=== PATIENT | male | born 1960 | race Caucasian/White ===

== ENCOUNTER → 2023-07-08 09:44 | Outpatient (ROUT) | payer BC, SELFPAY ==
[2023-07-08 10:45] LABS: Clostridium Difficile Tox PCR Negative for C. diff (Negative)
== END ==
PROVIDERS: Visit Provider Registered Nurse
DX: I69.354 Hemiplegia and hemiparesis following cerebral infarction affecting left non-dominant side (principal); G89.4 Chronic pain syndrome
CPT/HCPCS: 87493

== ENCOUNTER → 2023-11-30 15:54 | Outpatient (CLI) | payer BC, SELFPAY ==
--- NOTE | 2023-11-30 | DI.RAD.S_ITS ---
PROCEDURE: XR CHEST 2V INDICATIONS: WHEEZING TECHNIQUE: 2 views of the chest were acquired. COMPARISON: None. FINDINGS: Surgical changes and devices: None. Lungs and pleura: Lung volumes are small. Increased pulmonary vascularity. Bibasilar opacities are probably atelectasis. Question left basilar consolidation. No pleural effusions or pneumothorax. Mediastinum: Mediastinal contours are normal. Heart size is normal. Bones and chest wall: No suspicious bony abnormalities. Soft tissues appear unremarkable. IMPRESSION: 1. Question left basilar consolidation. 2. Small lung volumes with increased pulmonary vascularity and bibasilar atelectasis. Dictated by: Anita Jimenez M.D. on 11/30/2023 at 17:28 Approved by: Anita Jimenez M.D. on 11/30/2023 at 17:30
== END ==
LOC: RAD 16:01
PROVIDERS: Referring Provider Nurse Practitioner; Visit Provider Nurse Practitioner
DX: J18.9 Pneumonia, unspecified organism (principal); J91.8 Pleural effusion in other conditions classified elsewhere
CPT/HCPCS: 71046

== ENCOUNTER 2024-05-01 17:25 | Emergency (ER) | payer OTHER, SELFPAY ==
[2024-05-01] VITALS (19 sets, daily range): BP systolic 121–161; BP diastolic 70–91; PULSE 53–86; RESP 13–21; TEMP 36.6; O2SAT 90–98; BMI 25.0
--- NOTE | 2024-05-01 17:28 | ED_ITS ---
HPI - Abdominal Pain <Brittnee Fry MD - Last Filed: 05/02/24 13:14> General Chief Complaint: Abdominal Pain Stated Complaint: Abdominal Pain Time Seen by Provider: 05/01/24 17:30 History of Present Illness HPI narrative: 63-year-old male with history CVA with residual left-sided weakness, epilepsy presents by EMS from [facility] for abdominal pain for 1 day. Pain is all over his abdomen, poorly characterized, nothing seems to make it better or worse. Associated nausea. Patient states that he feels like he is very bloated. Denies prior history of abdominal surgeries. Related Data Home Medications Medication Instructions Recorded Confirmed baclofen 20 mg tablet 20 mg PO BID 05/01/24 05/01/24 diclofenac sodium 1 % topical gel 2 g topical BEDTIME 05/01/24 05/01/24 gabapentin 100 mg capsule 100 mg PO BEDTIME 05/01/24 05/01/24 gabapentin 100 mg capsule 400 mg PO QAM 05/01/24 05/01/24 gabapentin 300 mg capsule 600 mg PO BEDTIME 05/01/24 05/01/24 levetiracetam 500 mg tablet 500 mg PO BID 05/01/24 05/01/24 methocarbamol 500 mg tablet 500 mg PO Q6H PRN Pain (Scale 05/01/24 05/01/24 Score 4-6) olanzapine 10 mg tablet 10 mg PO ONCE PM 05/01/24 05/01/24 oxybutynin chloride 5 mg tablet 5 mg PO BID PRN Bladder Spasms 05/01/24 05/01/24 pantoprazole 40 mg tablet,delayed 40 mg PO DAILY 05/01/24 05/01/24 release trazodone 100 mg tablet 150 mg PO BEDTIME 05/01/24 05/01/24 Allergies Allergy/AdvReac Type Severity Reaction Status Date / Time tramadol AdvReac Intermediate Vomiting Verified 05/01/24 17:54 Patient History <Brittnee Fry MD - Last Filed: 05/02/24 13:14> Social History Smoking Status: Never smoker Exam <Brittnee Fry MD - Last Filed: 05/02/24 13:14> Initial Vital Signs Initial Vital Signs: Vital Signs Blood Pressure 151/87 H 05/01/24 17:27 Const: Awake, alert, no acute distress, debilitated, frail, appears chronically unwell, older than stated age Cardiac: regular rate, regular rhythm RESP: unlabored, clear bilaterally, no wheezing GI: Soft, distended, generalized tenderness to palpation without rebound or guarding Skin: Warm, Dry, intact, no rashes Neuro: AO x3, CN II-XII grossly intact, moves all extremities <Leonard Buckleystephane, DO - Last Filed: 05/02/24 17:55> Initial Vital Signs Initial Vital Signs: Vital Signs Blood Pressure 151/87 H 05/01/24 17:27 <Ke Grayson, DO - Last Filed: 05/02/24 17:47> Initial Vital Signs Initial Vital Signs: Vital Signs Blood Pressure 151/87 H 05/01/24 17:27 Course <Brittnee Fry MD - Last Filed: 05/02/24 13:14> Orders Ordered: Discontinued Medications Baclofen (Baclofen 10 Mg Tablet) 20 mg PO NOW ONE Stop: 05/01/24 22:55 Last Admin: 05/01/24 23:10 Dose: 20 mg Documented By: SB Baclofen (Baclofen 10 Mg Tablet) 20 mg PO NOW ONE Stop: 05/02/24 10:19 Last Admin: 05/02/24 11:02 Dose: 20 mg Documented By: SPF Benzocaine (Benzocaine/Menthol 1 Abiola Pkt) 1 each PO NOW ONE Stop: 05/01/24 22:13 Last Admin: 05/01/24 23:30 Dose: 1 each Documented By: SB Calcium Carbonate (Calcium Carbonate 500 Mg Tab) 500 mg PO NOW ONE Stop: 05/01/24 23:50 Last Admin: 05/01/24 23:57 Dose: 500 mg Documented By: SB Gabapentin (Gabapentin 300 Mg Capsule) 600 mg PO NOW ONE Stop: 05/01/24 22:54 Last Admin: 05/01/24 23:09 Dose: 600 mg Documented By: SB Gabapentin (Gabapentin 100 Mg Capsule) 100 mg PO NOW ONE Stop: 05/01/24 22:54 Last Admin: 05/01/24 23:10 Dose: 100 mg Documented By: SB Gabapentin (Gabapentin 100 Mg Capsule) 400 mg PO NOW ONE Stop: 05/02/24 10:18 Last Admin: 05/02/24 11:05 Dose: 400 mg Documented By: SPF Sodium Chloride (Normal Saline 0.9%) 1,000 mls @ 1,000 mls/hr IV BOLUS ONE Stop: 05/01/24 18:26 Last Infusion: 05/01/24 19:59 Dose: Infused Documented By: Admin: 05/01/24 17:49 Dose: 1,000 mls/hr Documented By: AUDRA Sodium Chloride (Normal Saline 0.9%) 1,000 mls @ 150 mls/hr IV CONT [facility] Last Infusion: 05/02/24 10:50 Dose: Infused Documented By: Infusion: 05/02/24 09:40 Dose: 150 mls/hr Documented By: Admin: 05/02/24 03:08 Dose: 150 mls/hr Documented By: Infusion: 05/02/24 03:06 Dose: Infused Documented By: Admin: 05/01/24 20:01 Dose: 150 mls/hr Documented By: MIKE Piperacillin Sod/Tazobactam (Sod 4.5 gm/ Sodium Chloride) 100 mls @ 25 mls/hr IV Q8H [facility] Last Infusion: 05/02/24 15:20 Dose: Infused Documented By: Admin: 05/02/24 11:06 Dose: 25 mls/hr Documented By: Infusion: 05/02/24 07:20 Dose: Infused Documented By: Admin: 05/02/24 03:08 Dose: 25 mls/hr Documented By: Infusion: 05/01/24 23:55 Dose: Infused Documented By: Admin: 05/01/24 20:03 Dose: 25 mls/hr Documented By: MIKE Ketorolac Tromethamine (Ketorolac 30 Mg/Ml Vial) 15 mg IV NOW ONE Stop: 05/02/24 03:21 Last Admin: 05/02/24 03:23 Dose: 15 mg Documented By: SIL Levetiracetam (Levetiracetam 250 Mg Tablet) 500 mg PO NOW ONE Stop: 05/01/24 22:55 Last Admin: 05/01/24 23:10 Dose: 500 mg Documented By: AUDRA Levetiracetam (Levetiracetam 250 Mg Tablet) 500 mg PO BID [facility] Last Admin: 05/02/24 11:03 Dose: 500 mg Documented By: OLEKSANDR Methocarbamol (Methocarbamol 500 Mg Tablet) 500 mg PO Q6H PRN PRN Reason: Pain, Severe (7-10) Last Admin: 05/02/24 11:02 Dose: 500 mg Documented By: SPF Morphine Sulfate (Morphine 4 Mg/Ml Inj) 4 mg IV NOW ONE Stop: 05/01/24 17:28 Last Admin: 05/01/24 17:57 Dose: 4 mg Documented By: AUDRA Olanzapine (Olanzapine 2.5 Mg Tablet) 10 mg PO NOW ONE Stop: 05/01/24 22:56 Last Admin: 05/01/24 23:09 Dose: 10 mg Documented By: AUDRA Ondansetron HCl (Ondansetron 4 Mg/2 Ml Inj) 4 mg IV NOW ONE Stop: 05/01/24 17:28 Last Admin: 05/01/24 17:50 Dose: 4 mg Documented By: AUDRA Pantoprazole Sodium (Pantoprazole Dr 20 Mg Tablet) 40 mg PO NOW ONE Stop: 05/02/24 10:21 Last Admin: 05/02/24 11:04 Dose: 40 mg Documented By: OLEKSANDR Trazodone HCl (Trazodone 50 Mg Tablet) 150 mg PO NOW ONE Stop: 05/01/24 22:56 Last Admin: 05/01/24 23:10 Dose: 150 mg Documented By: AUDRA Vital Signs Vital signs: Vital Signs - 8 hr 05/02/24 10:00 05/02/24 10:05 05/02/24 10:42 Pulse Rate 57 L 56 L Respiratory Rate Blood Pressure Pulse Oximetry 90 L 94 95 Oxygen Delivery Method Room Air Nasal Cannula Oxygen Flow Rate 2 05/02/24 10:43 05/02/24 10:43 05/02/24 11:00 Pulse Rate 54 L 57 L Respiratory Rate Blood Pressure 129/75 Pulse Oximetry 95 96 Oxygen Delivery Method Nasal Cannula Nasal Cannula Oxygen Flow Rate 2 2 05/02/24 11:00 05/02/24 11:30 05/02/24 12:00 Pulse Rate 50 L 51 L Respiratory Rate 21 Blood Pressure 120/74 Pulse Oximetry 95 96 Oxygen Delivery Method Nasal Cannula Nasal Cannula Oxygen Flow Rate 1 1 05/02/24 12:00 05/02/24 12:20 05/02/24 12:40 Pulse Rate 47 L 47 L Respiratory Rate 20 21 Blood Pressure 120/69 Pulse Oximetry 97 96 Oxygen Delivery Method Nasal Cannula Oxygen Flow Rate 1 05/02/24 13:00 05/02/24 13:05 05/02/24 13:05 Pulse Rate 44 L 46 L Respiratory Rate 21 11 L Blood Pressure 114/69 Pulse Oximetry 96 94 Oxygen Delivery Method Nasal Cannula Oxygen Flow Rate 1 05/02/24 13:20 05/02/24 13:40 05/02/24 14:00 Pulse Rate 42 L 44 L 48 L Respiratory Rate 17 20 22 Blood Pressure Pulse Oximetry 98 93 95 Oxygen Delivery Method Nasal Cannula Oxygen Flow Rate 1 05/02/24 14:01 05/02/24 14:01 05/02/24 14:14 Pulse Rate 49 L 50 L Respiratory Rate 21 15 Blood Pressure 91/62 Pulse Oximetry 95 94 Oxygen Delivery Method Nasal Cannula Oxygen Flow Rate 1 05/02/24 14:14 05/02/24 14:20 05/02/24 14:20 Pulse Rate 47 L Respiratory Rate 20 Blood Pressure 102/67 105/70 Pulse Oximetry 95 Oxygen Delivery Method Oxygen Flow Rate 05/02/24 14:40 05/02/24 14:41 05/02/24 14:41 Pulse Rate 48 L 50 L Respiratory Rate 16 20 Blood Pressure 124/73 Pulse Oximetry 97 97 Oxygen Delivery Method Nasal Cannula Oxygen Flow Rate 1 05/02/24 15:00 Pulse Rate 52 L Respiratory Rate 20 Blood Pressure Pulse Oximetry 96 Oxygen Delivery Method Oxygen Flow Rate <Leonard Macedo, DO - Last Filed: 05/02/24 17:55> Orders Ordered: Discontinued Medications Baclofen (Baclofen 10 Mg Tablet) 20 mg PO NOW ONE Stop: 05/01/24 22:55 Last Admin: 05/01/24 23:10 Dose: 20 mg Documented By: SB Baclofen (Baclofen 10 Mg Tablet) 20 mg PO NOW ONE Stop: 05/02/24 10:19 Last Admin: 05/02/24 11:02 Dose: 20 mg Documented By: SPF Benzocaine (Benzocaine/Menthol 1 Abiola Pkt) 1 each PO NOW ONE Stop: 05/01/24 22:13 Last Admin: 05/01/24 23:30 Dose: 1 each Documented By: SB Calcium Carbonate (Calcium Carbonate 500 Mg Tab) 500 mg PO NOW ONE Stop: 05/01/24 23:50 Last Admin: 05/01/24 23:57 Dose: 500 mg Documented By: SB Gabapentin (Gabapentin 300 Mg Capsule) 600 mg PO NOW ONE Stop: 05/01/24 22:54 Last Admin: 05/01/24 23:09 Dose: 600 mg Documented By: AUDRA Gabapentin (Gabapentin 100 Mg Capsule) 100 mg PO NOW ONE Stop: 05/01/24 22:54 Last Admin: 05/01/24 23:10 Dose: 100 mg Documented By: SB Gabapentin (Gabapentin 100 Mg Capsule) 400 mg PO NOW ONE Stop: 05/02/24 10:18 Last Admin: 05/02/24 11:05 Dose: 400 mg Documented By: OLEKSANDR Sodium Chloride (Normal Saline 0.9%) 1,000 mls @ 1,000 mls/hr IV BOLUS ONE Stop: 05/01/24 18:26 Last Infusion: 05/01/24 19:59 Dose: Infused Documented By: Admin: 05/01/24 17:49 Dose: 1,000 mls/hr Documented By: AUDRA Sodium Chloride (Normal Saline 0.9%) 1,000 mls @ 150 mls/hr IV CONT [facility] Last Infusion: 05/02/24 10:50 Dose: Infused Documented By: Infusion: 05/02/24 09:40 Dose: 150 mls/hr Documented By: Admin: 05/02/24 03:08 Dose: 150 mls/hr Documented By: Infusion: 05/02/24 03:06 Dose: Infused Documented By: HNEfrain Admin: 05/01/24 20:01 Dose: 150 mls/hr Documented By: MIKE Piperacillin Sod/Tazobactam (Sod 4.5 gm/ Sodium Chloride) 100 mls @ 25 mls/hr IV Q8H [facility] Last Infusion: 05/02/24 15:20 Dose: Infused Documented By: Admin: 05/02/24 11:06 Dose: 25 mls/hr Documented By: Infusion: 05/02/24 07:20 Dose: Infused Documented By: Admin: 05/02/24 03:08 Dose: 25 mls/hr Documented By: Infusion: 05/01/24 23:55 Dose: Infused Documented By: Admin: 05/01/24 20:03 Dose: 25 mls/hr Documented By: MIKE Ketorolac Tromethamine (Ketorolac 30 Mg/Ml Vial) 15 mg IV NOW ONE Stop: 05/02/24 03:21 Last Admin: 05/02/24 03:23 Dose: 15 mg Documented By: SIL Levetiracetam (Levetiracetam 250 Mg Tablet) 500 mg PO NOW ONE Stop: 05/01/24 22:55 Last Admin: 05/01/24 23:10 Dose: 500 mg Documented By: AUDRA Levetiracetam (Levetiracetam 250 Mg Tablet) 500 mg PO BID [facility] Last Admin: 05/02/24 11:03 Dose: 500 mg Documented By: OLEKSANDR Methocarbamol (Methocarbamol 500 Mg Tablet) 500 mg PO Q6H PRN PRN Reason: Pain, Severe (7-10) Last Admin: 05/02/24 11:02 Dose: 500 mg Documented By: OLEKSANDR Morphine Sulfate (Morphine 4 Mg/Ml Inj) 4 mg IV NOW ONE Stop: 05/01/24 17:28 Last Admin: 05/01/24 17:57 Dose: 4 mg Documented By: AUDRA Olanzapine (Olanzapine 2.5 Mg Tablet) 10 mg PO NOW ONE Stop: 05/01/24 22:56 Last Admin: 05/01/24 23:09 Dose: 10 mg Documented By: AUDRA Ondansetron HCl (Ondansetron 4 Mg/2 Ml Inj) 4 mg IV NOW ONE Stop: 05/01/24 17:28 Last Admin: 05/01/24 17:50 Dose: 4 mg Documented By: AUDRA Pantoprazole Sodium (Pantoprazole Dr 20 Mg Tablet) 40 mg PO NOW ONE Stop: 05/02/24 10:21 Last Admin: 05/02/24 11:04 Dose: 40 mg Documented By: OLEKSANDR Trazodone HCl (Trazodone 50 Mg Tablet) 150 mg PO NOW ONE Stop: 05/01/24 22:56 Last Admin: 05/01/24 23:10 Dose: 150 mg Documented By: AUDRA Vital Signs Vital signs: Vital Signs - 8 hr 05/02/24 10:00 05/02/24 10:05 05/02/24 10:42 Pulse Rate 57 L 56 L Respiratory Rate Blood Pressure Pulse Oximetry 90 L 94 95 Oxygen Delivery Method Room Air Nasal Cannula Oxygen Flow Rate 2 05/02/24 10:43 05/02/24 10:43 05/02/24 11:00 Pulse Rate 54 L 57 L Respiratory Rate Blood Pressure 129/75 Pulse Oximetry 95 96 Oxygen Delivery Method Nasal Cannula Nasal Cannula Oxygen Flow Rate 2 2 05/02/24 11:00 05/02/24 11:30 05/02/24 12:00 Pulse Rate 50 L 51 L Respiratory Rate 21 Blood Pressure 120/74 Pulse Oximetry 95 96 Oxygen Delivery Method Nasal Cannula Nasal Cannula Oxygen Flow Rate 1 1 05/02/24 12:00 05/02/24 12:20 05/02/24 12:40 Pulse Rate 47 L 47 L Respiratory Rate 20 21 Blood Pressure 120/69 Pulse Oximetry 97 96 Oxygen Delivery Method Nasal Cannula Oxygen Flow Rate 1 05/02/24 13:00 05/02/24 13:05 05/02/24 13:05 Pulse Rate 44 L 46 L Respiratory Rate 21 11 L Blood Pressure 114/69 Pulse Oximetry 96 94 Oxygen Delivery Method Nasal Cannula Oxygen Flow Rate 1 05/02/24 13:20 05/02/24 13:40 05/02/24 14:00 Pulse Rate 42 L 44 L 48 L Respiratory Rate 17 20 22 Blood Pressure Pulse Oximetry 98 93 95 Oxygen Delivery Method Nasal Cannula Oxygen Flow Rate 1 05/02/24 14:01 05/02/24 14:01 05/02/24 14:14 Pulse Rate 49 L 50 L Respiratory Rate 21 15 Blood Pressure 91/62 Pulse Oximetry 95 94 Oxygen Delivery Method Nasal Cannula Oxygen Flow Rate 1 05/02/24 14:14 05/02/24 14:20 05/02/24 14:20 Pulse Rate 47 L Respiratory Rate 20 Blood Pressure 102/67 105/70 Pulse Oximetry 95 Oxygen Delivery Method Oxygen Flow Rate 05/02/24 14:40 05/02/24 14:41 05/02/24 14:41 Pulse Rate 48 L 50 L Respiratory Rate 16 20 Blood Pressure 124/73 Pulse Oximetry 97 97 Oxygen Delivery Method Nasal Cannula Oxygen Flow Rate 1 05/02/24 15:00 Pulse Rate 52 L Respiratory Rate 20 Blood Pressure Pulse Oximetry 96 Oxygen Delivery Method Oxygen Flow Rate <Ke Grayson, DO - Last Filed: 05/02/24 17:47> Orders Ordered: Discontinued Medications Baclofen (Baclofen 10 Mg Tablet) 20 mg PO NOW ONE Stop: 05/01/24 22:55 Last Admin: 05/01/24 23:10 Dose: 20 mg Documented By: SB Baclofen (Baclofen 10 Mg Tablet) 20 mg PO NOW ONE Stop: 05/02/24 10:19 Last Admin: 05/02/24 11:02 Dose: 20 mg Documented By: SPF Benzocaine (Benzocaine/Menthol 1 Abiola Pkt) 1 each PO NOW ONE Stop: 05/01/24 22:13 Last Admin: 05/01/24 23:30 Dose: 1 each Documented By: AUDRA Calcium Carbonate (Calcium Carbonate 500 Mg Tab) 500 mg PO NOW ONE Stop: 05/01/24 23:50 Last Admin: 05/01/24 23:57 Dose: 500 mg Documented By: AUDRA Gabapentin (Gabapentin 300 Mg Capsule) 600 mg PO NOW ONE Stop: 05/01/24 22:54 Last Admin: 05/01/24 23:09 Dose: 600 mg Documented By: AUDRA Gabapentin (Gabapentin 100 Mg Capsule) 100 mg PO NOW ONE Stop: 05/01/24 22:54 Last Admin: 05/01/24 23:10 Dose: 100 mg Documented By: AUDRA Gabapentin (Gabapentin 100 Mg Capsule) 400 mg PO NOW ONE Stop: 05/02/24 10:18 Last Admin: 05/02/24 11:05 Dose: 400 mg Documented By: OLEKSANDR Sodium Chloride (Normal Saline 0.9%) 1,000 mls @ 1,000 mls/hr IV BOLUS ONE Stop: 05/01/24 18:26 Last Infusion: 05/01/24 19:59 Dose: Infused Documented By: Admin: 05/01/24 17:49 Dose: 1,000 mls/hr Documented By: AUDRA Sodium Chloride (Normal Saline 0.9%) 1,000 mls @ 150 mls/hr IV CONT [facility] Last Infusion: 05/02/24 10:50 Dose: Infused Documented By: Infusion: 05/02/24 09:40 Dose: 150 mls/hr Documented By: Admin: 05/02/24 03:08 Dose: 150 mls/hr Documented By: Infusion: 05/02/24 03:06 Dose: Infused Documented By: Admin: 05/01/24 20:01 Dose: 150 mls/hr Documented By: MPO Piperacillin Sod/Tazobactam (Sod 4.5 gm/ Sodium Chloride) 100 mls @ 25 mls/hr IV Q8H [facility] Last Infusion: 05/02/24 15:20 Dose: Infused Documented By: Admin: 05/02/24 11:06 Dose: 25 mls/hr Documented By: Infusion: 05/02/24 07:20 Dose: Infused Documented By: Admin: 05/02/24 03:08 Dose: 25 mls/hr Documented By: Infusion: 05/01/24 23:55 Dose: Infused Documented By: Admin: 05/01/24 20:03 Dose: 25 mls/hr Documented By: MIKE Ketorolac Tromethamine (Ketorolac 30 Mg/Ml Vial) 15 mg IV NOW ONE Stop: 05/02/24 03:21 Last Admin: 05/02/24 03:23 Dose: 15 mg Documented By: SIL Levetiracetam (Levetiracetam 250 Mg Tablet) 500 mg PO NOW ONE Stop: 05/01/24 22:55 Last Admin: 05/01/24 23:10 Dose: 500 mg Documented By: AUDRA Levetiracetam (Levetiracetam 250 Mg Tablet) 500 mg PO BID [facility] Last Admin: 05/02/24 11:03 Dose: 500 mg Documented By: OLEKSANDR Methocarbamol (Methocarbamol 500 Mg Tablet) 500 mg PO Q6H PRN PRN Reason: Pain, Severe (7-10) Last Admin: 05/02/24 11:02 Dose: 500 mg Documented By: OLEKSANDR Morphine Sulfate (Morphine 4 Mg/Ml Inj) 4 mg IV NOW ONE Stop: 05/01/24 17:28 Last Admin: 05/01/24 17:57 Dose: 4 mg Documented By: AUDRA Olanzapine (Olanzapine 2.5 Mg Tablet) 10 mg PO NOW ONE Stop: 05/01/24 22:56 Last Admin: 05/01/24 23:09 Dose: 10 mg Documented By: AUDRA Ondansetron HCl (Ondansetron 4 Mg/2 Ml Inj) 4 mg IV NOW ONE Stop: 05/01/24 17:28 Last Admin: 05/01/24 17:50 Dose: 4 mg Documented By: AUDRA Pantoprazole Sodium (Pantoprazole Dr 20 Mg Tablet) 40 mg PO NOW ONE Stop: 05/02/24 10:21 Last Admin: 05/02/24 11:04 Dose: 40 mg Documented By: SPF Trazodone HCl (Trazodone 50 Mg Tablet) 150 mg PO NOW ONE Stop: 05/01/24 22:56 Last Admin: 05/01/24 23:10 Dose: 150 mg Documented By: AUDRA Vital Signs Vital signs: Vital Signs - 8 hr 05/02/24 10:00 05/02/24 10:05 05/02/24 10:42 Pulse Rate 57 L 56 L Respiratory Rate Blood Pressure Pulse Oximetry 90 L 94 95 Oxygen Delivery Method Room Air Nasal Cannula Oxygen Flow Rate 2 05/02/24 10:43 05/02/24 10:43 05/02/24 11:00 Pulse Rate 54 L 57 L Respiratory Rate Blood Pressure 129/75 Pulse Oximetry 95 96 Oxygen Delivery Method Nasal Cannula Nasal Cannula Oxygen Flow Rate 2 2 05/02/24 11:00 05/02/24 11:30 05/02/24 12:00 Pulse Rate 50 L 51 L Respiratory Rate 21 Blood Pressure 120/74 Pulse Oximetry 95 96 Oxygen Delivery Method Nasal Cannula Nasal Cannula Oxygen Flow Rate 1 1 05/02/24 12:00 05/02/24 12:20 05/02/24 12:40 Pulse Rate 47 L 47 L Respiratory Rate 20 21 Blood Pressure 120/69 Pulse Oximetry 97 96 Oxygen Delivery Method Nasal Cannula Oxygen Flow Rate 1 05/02/24 13:00 05/02/24 13:05 05/02/24 13:05 Pulse Rate 44 L 46 L Respiratory Rate 21 11 L Blood Pressure 114/69 Pulse Oximetry 96 94 Oxygen Delivery Method Nasal Cannula Oxygen Flow Rate 1 05/02/24 13:20 05/02/24 13:40 05/02/24 14:00 Pulse Rate 42 L 44 L 48 L Respiratory Rate 17 20 22 Blood Pressure Pulse Oximetry 98 93 95 Oxygen Delivery Method Nasal Cannula Oxygen Flow Rate 1 05/02/24 14:01 05/02/24 14:01 05/02/24 14:14 Pulse Rate 49 L 50 L Respiratory Rate 21 15 Blood Pressure 91/62 Pulse Oximetry 95 94 Oxygen Delivery Method Nasal Cannula Oxygen Flow Rate 1 05/02/24 14:14 05/02/24 14:20 05/02/24 14:20 Pulse Rate 47 L Respiratory Rate 20 Blood Pressure 102/67 105/70 Pulse Oximetry 95 Oxygen Delivery Method Oxygen Flow Rate 05/02/24 14:40 05/02/24 14:41 05/02/24 14:41 Pulse Rate 48 L 50 L Respiratory Rate 16 20 Blood Pressure 124/73 Pulse Oximetry 97 97 Oxygen Delivery Method Nasal Cannula Oxygen Flow Rate 1 05/02/24 15:00 Pulse Rate 52 L Respiratory Rate 20 Blood Pressure Pulse Oximetry 96 Oxygen Delivery Method Oxygen Flow Rate MDM - Abdominal Pain <Brittnee Fry MD - Last Filed: 05/02/24 13:14> Lab Data 05/01/24 18:05 05/01/24 18:05 Labs: Lab Results 05/01/24 05/01/24 Range/Units 18:05 19:00 WBC 14.4 H (4.5-11.0) X10^3/uL RBC 5.33 (4.5-5.9) X10^6/uL Hgb 15.6 (13.5-17.5) g/dL Hct 46.4 (41-53) % MCV 87.0 (80-100) fL MCH 29.2 (26-34) PG MCHC 33.6 (30-36) % RDW 14.7 (11.6-14.8) % Plt Count 287 (150-400) X10^3/uL Neut % (Auto) 91.9 H (50-75) % Lymph % (Auto) 4.7 L (25-40) % Kay % (Auto) 3.1 (3-14) % Eos % (Auto) 0.1 L (2-4) % Baso % (Auto) 0.2 (0-2) % Neut # (Auto) 97408 H (0034-1701) /uL Lymph # (Auto) 700 L (6251-9013) /uL Kay # (Auto) 400 (0-900) /uL Eos # (Auto) 0 (0-450) /uL Baso # (Auto) 0 (0-100) /uL PT 12.3 (9.4-12.5) SECONDS INR 1.1 (0.9-1.3) Sodium 140 (137-145) mmol/L Potassium 3.5 (3.4-5.1) mmol/L Chloride 105 (98-107) mmol/L Carbon Dioxide 27 (22-32) mmol/L BUN 22 H (9-20) mg/dL Creatinine 0.47 L (0.66-1.25) mg/dL Estimated GFR > 60 (>60) mL/min BUN/Creatinine Ratio 46.8 H (6-22) Glucose 180 H (80-110) mg/dL Lactate 1.8 (0.7-2.1) mmol/L Calcium 9.0 (8.4-10.2) mg/dL Total Bilirubin 1.6 H (0.2-1.3) mg/dL AST 285 H (17-59) IU/L ALT 310 H (<50) IU/L Alkaline Phosphatase 134 H (38-126) U/L Total Protein 7.6 (6.3-8.2) g/dL Albumin 4.0 (3.5-5.0) g/dL Globulin 3.6 (1.7-4.1) g/dL Albumin/Globulin Ratio 1.1 (1.0-2.8) Lipase 83004 H (23-300) U/L Urine Color Yellow Urine Appearance Sl cloudy Urine pH 6.5 (4.5-8.0) Ur Specific [place] 1.010 (1.000-1.035) Urine Protein Negative (Negative) Urine Glucose (UA) Negative (Negative) g/dL Urine Ketones Negative (NEGATIVE) Urine Occult Blood Trace-intact (Negative) Urine Nitrate Negative (Negative) Urine Bilirubin Negative (NEGATIVE) Urine Urobilinogen 1.0 (0.2) E.U./dL Ur Leukocyte Esterase 3+ H (NEGATIVE) Urine RBC 0-1/hpf (0-5/HPF) Urine WBC 30-100/hpf H (0-5/HPF) Ur Squamous Epith Cells 0-1 /hpf (0-5/HPF) Urine Bacteria Many (>30) H (None) Urine Mucus 1+ H (Negative) Ur Culture Indicated? Specimen cultured Vol Urine Centrifuged 10ml (spun) MDM Narrative Medical decision making narrative: 1 day of abdominal pain and nausea. Patient also complaining of a severe bloating sensation. Abdomen does appear to be somewhat distended but is soft, no fluid wave, no peritoneal signs. Laboratory work, CT imaging ordered. Nausea and pain medications also ordered. Care of patient is signed out to nighttime doctor at 1800 <Leonard Macedo DO - Last Filed: 05/02/24 17:55> Lab Data Attestation: I reviewed the patient's lab results. Labs: Lab Results 05/01/24 05/01/24 Range/Units 18:05 19:00 WBC 14.4 H (4.5-11.0) X10^3/uL RBC 5.33 (4.5-5.9) X10^6/uL Hgb 15.6 (13.5-17.5) g/dL Hct 46.4 (41-53) % MCV 87.0 (80-100) fL MCH 29.2 (26-34) PG MCHC 33.6 (30-36) % RDW 14.7 (11.6-14.8) % Plt Count 287 (150-400) X10^3/uL Neut % (Auto) 91.9 H (50-75) % Lymph % (Auto) 4.7 L (25-40) % Kay % (Auto) 3.1 (3-14) % Eos % (Auto) 0.1 L (2-4) % Baso % (Auto) 0.2 (0-2) % Neut # (Auto) 15065 H (4906-3062) /uL Lymph # (Auto) 700 L (5485-3558) /uL Kay # (Auto) 400 (0-900) /uL Eos # (Auto) 0 (0-450) /uL Baso # (Auto) 0 (0-100) /uL PT 12.3 (9.4-12.5) SECONDS INR 1.1 (0.9-1.3) Sodium 140 (137-145) mmol/L Potassium 3.5 (3.4-5.1) mmol/L Chloride 105 (98-107) mmol/L Carbon Dioxide 27 (22-32) mmol/L BUN 22 H (9-20) mg/dL Creatinine 0.47 L (0.66-1.25) mg/dL Estimated GFR > 60 (>60) mL/min BUN/Creatinine Ratio 46.8 H (6-22) Glucose 180 H (80-110) mg/dL Lactate 1.8 (0.7-2.1) mmol/L Calcium 9.0 (8.4-10.2) mg/dL Total Bilirubin 1.6 H (0.2-1.3) mg/dL AST 285 H (17-59) IU/L ALT 310 H (<50) IU/L Alkaline Phosphatase 134 H (38-126) U/L Total Protein 7.6 (6.3-8.2) g/dL Albumin 4.0 (3.5-5.0) g/dL Globulin 3.6 (1.7-4.1) g/dL Albumin/Globulin Ratio 1.1 (1.0-2.8) Lipase 25309 H (23-300) U/L Urine Color Yellow Urine Appearance Sl cloudy Urine pH 6.5 (4.5-8.0) Ur Specific [place] 1.010 (1.000-1.035) Urine Protein Negative (Negative) Urine Glucose (UA) Negative (Negative) g/dL Urine Ketones Negative (NEGATIVE) Urine Occult Blood Trace-intact (Negative) Urine Nitrate Negative (Negative) Urine Bilirubin Negative (NEGATIVE) Urine Urobilinogen 1.0 (0.2) E.U./dL Ur Leukocyte Esterase 3+ H (NEGATIVE) Urine RBC 0-1/hpf (0-5/HPF) Urine WBC 30-100/hpf H (0-5/HPF) Ur Squamous Epith Cells 0-1 /hpf (0-5/HPF) Urine Bacteria Many (>30) H (None) Urine Mucus 1+ H (Negative) Ur Culture Indicated? Specimen cultured Vol Urine Centrifuged 10ml (spun) Imaging Data US - abdomen: Radiologist's Impression: PROCEDURE: US ABDOMEN LIMITED INDICATIONS: FOLLOW UP CT - GALLBLADDER TECHNIQUE: Real-time focused scanning was performed of the abdomen, with image documentation. COMPARISON: [facility], CT, CT ABDOMEN PELVIS W CON, 05/01/2024, 18:32. FINDINGS: Liver measures 17 cm. Echogenic appearance. Limited evaluation due to increased bowel gas. Small bowel sludge and gallstones are present. Distended gallbladder. No focal tenderness. Distended CBD at 8 mm. Nonspecific heterogeneous appearance of the pancreas. IMPRESSION: Limited sonographic windows. Cholelithiasis and distended gallbladder without focal sonographic [place] sign at this time. Distended biliary tree at 8 mm. Echogenic liver, nonspecific, usually due to steatosis or hepatocellular disease. CT scan - abdomen/pelvis: Radiologist's Impression: PROCEDURE: CT ABDOMEN PELVIS W CON INDICATIONS: N/V/GEN ABD DISTENSION TECHNIQUE: After the administration of intravenous contrast, axial sections acquired from the lung bases to the pubic symphysis. Coronal and sagittal reformats were performed. For radiation dose reduction, the following was used: automated exposure control, adjustment of mA and/or kV according to patient size. COMPARISON: None. FINDINGS: Image quality: Diagnostic Lower chest: Bibasilar atelectasis and opacities. No significant effusion. Cardiomegaly and coronary calcifications. Mild fluid is seen in the distal esophagus Liver: Unremarkable Gallbladder and biliary system: Distended, CBD is prominent at 9 millimeters. Pancreas: No high-grade inflammatory changes. No ductal dilation. There is possible altered enhancement at the pancreatic head. Spleen: Nonenlarged Adrenals: No discrete nodules Kidneys: No solid mass or hydronephrosis subcentimeter lesions are too small to characterize, usually cysts. Vessels and lymph nodes: Possible asymmetric filling defect in the right pelvic veins and right common femoral vein. No abdominal aortic aneurysm. The main portal vein is patent. No pathologic lymph nodes by size criteria Bowel and peritoneum: The stomach is moderately distended. No acute small bowel obstruction. No pathologic ascites. Mild wall thickening at the rectum and distal colon. There are colonic diverticula. The appendix is nondilated. Body wall: Tiny fat containing umbilical hernia Pelvis: Bladder appears unremarkable. Prostate is not well evaluated on this study. There is fluid and muscular atrophy around the left femur. No rim enhancing fluid collection. Bones: Degenerative changes. IMPRESSION: Altered enhancement of the pancreatic head, possibly with minimal surrounding fat stranding. Correlate with lipase. This may be also due to heterogeneous fatty deposition of the pancreas. Distended gallbladder and mildly distended CBD, no radiopaque gallstones. Consider MRCP/pancreas protocol MRI to further assess the head of the pancreas and biliary system if clinically indicated. Distended stomach, no small bowel obstruction. Possible proctitis and distal colitis. Nonspecific fluid and muscular atrophy surrounding the proximal left femur, partially visualized. Cardiomegaly and coronary calcifications. Lower lung atelectasis and possible infectious/inflammatory opacities. This is only partially seen. Possible filling defect in right pelvic vein and right common femoral vein, correlate with ultrasound. Other findings above. ECG Data Interpretation: Sinus rhythm Ventricular rate of 83 Normal axis Normal QRS LVH No ST T wave changes MDM Narrative Medical decision making narrative: 1 day of abdominal pain and nausea. Patient also complaining of a severe bloating sensation. Abdomen does appear to be somewhat distended but is soft, no fluid wave, no peritoneal signs. Laboratory work, CT imaging ordered. Nausea and pain medications also ordered. Care of patient is signed out to nighttime doctor at 1800 Dr macedo: Received turned over. Review patient's history and physical exam. Patient is having abdominal bloating. No specific abdominal tenderness just overall discomfort because of the bloating. He does have leukocytosis bilirubin and LFTs are elevated along with lipase. CT scan shows findings consistent with pancreatitis and potential gallbladder pathology. Right upper quadrant ultrasound also shows potential gallbladder pathology. Patient was started on Zosyn. There is some concern given his lab testing that he does have a common bile duct stone. Pain is relatively well controlled. He was given his night medications. Fluids started. Has not been hypotensive. Does require MRCP for further evaluation. This was ordered for morning. He has been NPO since midnight. Care turned over to day ED provider to follow-up on MRCP and disposition. <Ke Grayson, DO - Last Filed: 05/02/24 17:47> Differential Diagnosis Differential diagnosis: Likely abdominal pain, acute appendicitis, diverticulitis, small bowel obstruction and other (Cholelithiasis, pancreatitis, choledocholithiasis, cholecystitis) Medical Records Attestation: I reviewed the patient's medical records. Lab Data Labs: Lab Results 05/01/24 05/01/24 Range/Units 18:05 19:00 WBC 14.4 H (4.5-11.0) X10^3/uL RBC 5.33 (4.5-5.9) X10^6/uL Hgb 15.6 (13.5-17.5) g/dL Hct 46.4 (41-53) % MCV 87.0 (80-100) fL MCH 29.2 (26-34) PG MCHC 33.6 (30-36) % RDW 14.7 (11.6-14.8) % Plt Count 287 (150-400) X10^3/uL Neut % (Auto) 91.9 H (50-75) % Lymph % (Auto) 4.7 L (25-40) % Kay % (Auto) 3.1 (3-14) % Eos % (Auto) 0.1 L (2-4) % Baso % (Auto) 0.2 (0-2) % Neut # (Auto) 32535 H (2059-6385) /uL Lymph # (Auto) 700 L (4663-5042) /uL Kay # (Auto) 400 (0-900) /uL Eos # (Auto) 0 (0-450) /uL Baso # (Auto) 0 (0-100) /uL PT 12.3 (9.4-12.5) SECONDS INR 1.1 (0.9-1.3) Sodium 140 (137-145) mmol/L Potassium 3.5 (3.4-5.1) mmol/L Chloride 105 (98-107) mmol/L Carbon Dioxide 27 (22-32) mmol/L BUN 22 H (9-20) mg/dL Creatinine 0.47 L (0.66-1.25) mg/dL Estimated GFR > 60 (>60) mL/min BUN/Creatinine Ratio 46.8 H (6-22) Glucose 180 H (80-110) mg/dL Lactate 1.8 (0.7-2.1) mmol/L Calcium 9.0 (8.4-10.2) mg/dL Total Bilirubin 1.6 H (0.2-1.3) mg/dL AST 285 H (17-59) IU/L ALT 310 H (<50) IU/L Alkaline Phosphatase 134 H (38-126) U/L Total Protein 7.6 (6.3-8.2) g/dL Albumin 4.0 (3.5-5.0) g/dL Globulin 3.6 (1.7-4.1) g/dL Albumin/Globulin Ratio 1.1 (1.0-2.8) Lipase 86619 H (23-300) U/L Urine Color Yellow Urine Appearance Sl cloudy Urine pH 6.5 (4.5-8.0) Ur Specific [place] 1.010 (1.000-1.035) Urine Protein Negative (Negative) Urine Glucose (UA) Negative (Negative) g/dL Urine Ketones Negative (NEGATIVE) Urine Occult Blood Trace-intact (Negative) Urine Nitrate Negative (Negative) Urine Bilirubin Negative (NEGATIVE) Urine Urobilinogen 1.0 (0.2) E.U./dL Ur Leukocyte Esterase 3+ H (NEGATIVE) Urine RBC 0-1/hpf (0-5/HPF) Urine WBC 30-100/hpf H (0-5/HPF) Ur Squamous Epith Cells 0-1 /hpf (0-5/HPF) Urine Bacteria Many (>30) H (None) Urine Mucus 1+ H (Negative) Ur Culture Indicated? Specimen cultured Vol Urine Centrifuged 10ml (spun) MDM Narrative Medical decision making narrative: 1 day of abdominal pain and nausea. Patient also complaining of a severe bloating sensation. Abdomen does appear to be somewhat distended but is soft, no fluid wave, no peritoneal signs. Laboratory work, CT imaging ordered. Nausea and pain medications also ordered. Care of patient is signed out to nighttime doctor at [address] Dr macedo: Received turned over. Review patient's history and physical exam. Patient is having abdominal bloating. No specific abdominal tenderness just overall discomfort because of the bloating. He does have leukocytosis bilirubin and LFTs are elevated along with lipase. CT scan shows findings consistent with pancreatitis and potential gallbladder pathology. Right upper quadrant ultrasound also shows potential gallbladder pathology. Patient was started on Zosyn. There is some concern given his lab testing that he does have a common bile duct stone. Pain is relatively well controlled. He was given his night medications. Fluids started. Has not been hypotensive. Does require MRCP for further evaluation. This was ordered for morning. He has been NPO since midnight. Care turned over to day ED provider to follow-up on MRCP and disposition. 05.02.24 @ 0710: Case was signed out to me by Dr. Macedo: Patient presented nonspecific diffuse abdominal discomfort, lab work and imaging currently consistent with pancreatitis as well as distended common bile duct. Patient is to receive MRCP today, if common bile duct stone present will require transfer to facility with GI, if normal will reach out to General surgery for disposition. Patient has been NPO since midnight. 1103: Had a discussion with the radiologist, patient had truncated MRCP given pain and motion artifact, however he states that there are 2 CBD duct stones, however also is stating that there is a low ectopic insertion of the cystic duct and common bile duct which could potentially complicate any cholecystectomies. We will reach out to General surgery for further recommendation 1120: Discussed case with general surgeon Dr. Fuller, informed her of the MRI results, states that given common bile duct stones still would recommend transfer to outside hospital for ERCP 1136: Discussed case GI doctor Shaneka, he states that patient will need ERCP and agrees to have it transferred over to [facility]. Recommending discussion for admission with hospitalist. Will reach out to hospitalist for admission and transfer 1355: Case discussed with dr. Roldan (hospitalist at [facility]), accepts the transfer admission. Discharge Plan Departure Patient Disposition: [facility] Clinical Impression: Choledocholithiasis with acute cholecystitis with obstruction, Pancreatitis, Abdominal pain Prescriptions: No Action methocarbamol 500 mg tablet 500 mg PO Q6H PRN (Reason: Pain (Scale Score 4-6)) levetiracetam 500 mg tablet 500 mg PO BID olanzapine 10 mg tablet 10 mg PO ONCE PM baclofen 20 mg tablet 20 mg PO BID trazodone 100 mg tablet 150 mg PO BEDTIME pantoprazole 40 mg tablet,delayed release (DR/EC) 40 mg PO DAILY gabapentin 300 mg capsule 600 mg PO BEDTIME gabapentin 100 mg capsule 100 mg PO BEDTIME gabapentin 100 mg capsule 400 mg PO QAM oxybutynin chloride 5 mg Tablet 5 mg PO BID PRN (Reason: Bladder Spasms) diclofenac sodium 1 % Gel 2 g TOPICAL BEDTIME Rx Instructions: LLE Referrals: Miscellaneous,Doctor, [Primary Care Provider] -
--- NOTE | 2024-05-01 17:47 | EKG_ITS ---
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
[2024-05-01] MEDS: SODIUM CHLORIDE 0.9% 1,000 ML 1000 ML IV (17:49)
[2024-05-01] MEDS: ONDANSETRON 4 MG/2 ML INJ IV (17:50)
[2024-05-01] MEDS: MORPHINE 4 MG/ML INJ IV (17:57)
[2024-05-01 18:16] LABS: Add Manual Diff / Slide Review NO; Basophils Absolute Auto 0 /uL (0-100); Basophils Percent Auto 0.2 % (0-2); Eosinophils Absolute Auto 0 /uL (0-450); Eosinophils Percent Auto 0.1 % (2-4); Hematocrit 46.4 % (41-53); Hemoglobin 15.6 g/dL (13.5-17.5); Lymphocytes Absolute Auto 700 /uL (1100-4500); Lymphocytes Percent Auto 4.7 % (25-40); Mean Corpuscular HGB Conc 33.6 % (30-36); Mean Corpuscular Hemoglobin 29.2 PG (26-34); Monocytes Absolute Auto 400 /uL (0-900); Monocytes Percent Auto 3.1 % (3-14); Neutrophils Absolute Auto 13300 /uL (1500-7000); Neutrophils Percent Auto 91.9 % (50-75); Platelet Count 287 X10^3/uL (150-400); Red Blood Cell Count 5.33 X10^6/uL (4.5-5.9); Red Cell Distribution Width 14.7 % (11.6-14.8); White Blood Cell Count 14.4 X10^3/uL (4.5-11.0)
[2024-05-01 18:21] LABS: INR 1.1 (0.9-1.3); Prothrombin Time 12.3 SECONDS (9.4-12.5)
[2024-05-01 18:25] LABS: Lactate (Lactic Acid) 1.8 mmol/L (0.7-2.1)
[2024-05-01 18:26] LABS: Alanine Aminotransferase 310 IU/L (<50); Albumin Globulin Ratio 1.1 (1.0-2.8); Alkaline Phosphatase 134 U/L (38-126); Aspartate Aminotransferase 285 IU/L (17-59); BUN Creatinine Ratio 46.8 (6-22); Bilirubin Total 1.6 mg/dL (0.2-1.3); Blood Urea Nitrogen 22 mg/dL (9-20); Carbon Dioxide 27 mmol/L (22-32); Chloride 105 mmol/L (98-107); Estimated Glomerular Filt Rate > 60 mL/min (>60); Globulin 3.6 g/dL (1.7-4.1); Glucose 180 mg/dL (80-110); HEMOLYSIS < 15 (0-50); Potassium 3.5 mmol/L (3.4-5.1); Sodium 140 mmol/L (137-145); Total Protein 7.6 g/dL (6.3-8.2)
[2024-05-01 19:06] LABS: Appearance Urine UA SL CLOUDY; Bilirubin Urine UA NEGATIVE (NEGATIVE); Color Urine UA YELLOW; Glucose Urine UA NEGATIVE (Negative); Ketones Urine UA NEGATIVE (NEGATIVE); Leukocyte Esterase Urine UA 3+ (NEGATIVE); Nitrite Urine UA NEGATIVE (Negative); Occult Blood Urine UA TRACE-INTACT (Negative); Protein Urine UA NEGATIVE (Negative); pH Urine UA 6.5 (4.5-8.0)
[2024-05-01 19:14] LABS: Bacteria Urine Many (>30); Culture Indicated Urine Specimen Cultured; Mucus Urine 1+ (Negative); RBC Urine 0-1/HPF (0-5/HPF); Squamous Epithelial Cell Urine 0-1 /HPF (0-5/HPF); Urine Volume 10mL (spun); WBC Urine 30-100/HPF (0-5/HPF)
[2024-05-01 19:14] LABS: Lipase 14381 U/L (23-300)
--- NOTE | 2024-05-01 19:18 | DI.US.S_ITS ---
PROCEDURE: US ABDOMEN LIMITED INDICATIONS: FOLLOW UP CT - GALLBLADDER TECHNIQUE: Real-time focused scanning was performed of the abdomen, with image documentation. COMPARISON: [facility], CT, CT ABDOMEN PELVIS W CON, 05/01/2024, 18:32. FINDINGS: Liver measures 17 cm. Echogenic appearance. Limited evaluation due to increased bowel gas. Small bowel sludge and gallstones are present. Distended gallbladder. No focal tenderness. Distended CBD at 8 mm. Nonspecific heterogeneous appearance of the pancreas. IMPRESSION: Limited sonographic windows. Cholelithiasis and distended gallbladder without focal sonographic [place] sign at this time. Distended biliary tree at 8 mm. Echogenic liver, nonspecific, usually due to steatosis or hepatocellular disease. Dictated by: Ismael Rashid M.D. on 05/01/2024 at 21:44 Approved by: Ismael Rashid M.D. on 05/01/2024 at 21:45
[2024-05-01] MEDS: SODIUM CHLORIDE 0.9% 1,000 ML 150 ML IV (20:01)
[2024-05-01] MEDS: PIPERACILLIN/TAZO 4.5 GM in SODIUM CHLORIDE 0.9% 100 ML IV (20:03)
--- NOTE | 2024-05-01 22:29 | DI.MRI.S_ITS ---
PROCEDURE: MR ABDOMEN WO CON INDICATIONS: Eval for common bile duct stone TECHNIQUE: Coronal HASTE through the abdomen, axial 2-D FLASH in- and [id number], and breath-hold T2 FSE with fat saturation through the biliary system and pancreas. Oblique coronal and axial thin-slice HASTE, radial thick-slab HASTE centered on the extrahepatic bile ducts. Intravenous secretin: Not requested. COMPARISON: [facility], US, US ABDOMEN LIMITED, 05/01/2024, 20:10. [facility], CT, CT ABDOMEN PELVIS W CON, 05/01/2024, 18:32. FINDINGS: Image quality: Patient motion artifact. Gallbladder: Distended gallbladder with gallstones. No gallbladder wall thickening. Patient motion artifact. Biliary ducts: Allowing for limits based on patient motion artifact, there appears to be both an ectopic low insertion of the cystic duct on the common duct, as well as 2 probable tiny common duct stones. Pancreas: No ductal dilation. OTHER: Lung bases: Unremarkable. Liver: No solid mass. Spleen: Size is within normal limits. Adrenal Glands: No adrenal nodules. Kidneys and Ureters: No hydronephrosis. No solid mass. No complex renal cystic lesion which requires follow up. Stomach and Bowel: Normal colonic caliber, without significant wall thickening. Peritoneum: No abnormal intraperitoneal fluid. No free air. Ventral Wall: No hernia. Abdominal Nodes: No retroperitoneal or mesenteric adenopathy by size criteria. Vessels: Aorta and inferior vena cava are normal in size. Bones: No aggressive osseous abnormality. IMPRESSION: 1. The there are limits of this examination based on patient motion artifact. 2. It is noted the patient could not tolerate post gadolinium imaging, in this study only represents the MRCP without contrast portion of the study. 3. Allowing for the limits based on patient motion artifact, there is apparent low insertion of the cystic duct on the common duct, important to understand prior to potential surgery, as well as 2 probable tiny common duct stones. Comment: Findings were discussed with Dr. Grayson on 05/02/2024 at 1100 hours Dictated by: Aleks Hall M.D. on 05/02/2024 at 10:51 Approved by: Aleks Hall M.D. on 05/02/2024 at 11:02
--- NOTE | 2024-05-01 23:02 | PC.NURSE ---
This RN confirmed with Velma patient has not had nighttime meds. Night time medication list updated and provider made aware.
[2024-05-01] MEDS: OLANZapine 2.5 MG TABLET 10 MG PO (23:09)
[2024-05-01] MEDS: GABAPENTIN 300 MG CAPSULE 600 MG PO (23:09)
[2024-05-01] MEDS: BACLOFEN 10 MG TABLET 20 MG PO (23:10)
[2024-05-01] MEDS: levETIRAcetam 250 MG TABLET 500 MG PO (23:10)
[2024-05-01] MEDS: TRAZODONE 50 MG TABLET 150 MG PO (23:10)
[2024-05-01] MEDS: GABAPENTIN 100 MG CAPSULE PO (23:10)
[2024-05-01] MEDS: BENZOCAINE/MENTHOL 1 LOZ PKT 1 EACH PO (23:30)
[2024-05-01] MEDS: CALCIUM CARBONATE 500 MG TAB PO (23:57)
[2024-05-02] VITALS (41 sets, daily range): BP systolic 91–186; BP diastolic 59–84; PULSE 42–58; RESP 11–22; O2SAT 90–98
[2024-05-02] MEDS: PIPERACILLIN/TAZO 4.5 GM in SODIUM CHLORIDE 0.9% 100 ML IV ×2 (03:08→11:06)
[2024-05-02] MEDS: SODIUM CHLORIDE 0.9% 1,000 ML 150 ML IV (03:08)
[2024-05-02] MEDS: KETOROLAC 30 MG/ML VIAL 15 MG IV (03:23)
--- NOTE | 2024-05-02 03:24 | PC.NURSE ---
PUBLIC RECORDS RESEARCHER note: Checked on patient. Turned patient to left side, adjusted his legs with a blanket under his left knee. Patient received a warm blanket. Patient asked multiple questions and I answered them to the best of my ability.
--- NOTE | 2024-05-02 09:44 | PC.NURSE ---
Pt found to have condom catheter displaced with saturated linens with urine. Linens were removed and patient repositioned in bed with fresh linens in place. I assisted with jing care and applied a new condom catheter and fresh brief with barrier cream. 4x pillows placed to left arm, left leg and right leg. Mouth swab provided for patient comfort. MRI questionnaire interview performed.
--- NOTE | 2024-05-02 10:49 | PC.NURSE ---
DI transporter brought patient back to room stating pt was in too much pain to finish the MRI. telemetry technician Eldon states pt yelled get me the F outta here, I dont want to do this anymore. Report is being read by radiologist. ER Provider notified.
[2024-05-02] MEDS: BACLOFEN 10 MG TABLET 20 MG PO (11:02)
[2024-05-02] MEDS: methocarbamoL 500 MG TABLET PO (11:02)
[2024-05-02] MEDS: levETIRAcetam 250 MG TABLET 500 MG PO (11:03)
[2024-05-02] MEDS: PANTOPRAZOLE DR 20 MG TABLET 40 MG PO (11:04)
[2024-05-02] MEDS: GABAPENTIN 100 MG CAPSULE 400 MG PO (11:05)
--- NOTE | 2024-05-02 15:10 | PC.NURSE ---
Pt concerned about having a procedure and requested I call his POA and ex Glenda. I called Glenda ([phone]) and updated her on pt's status requiring ERCP procedure. Glenda agrees with plan and requested to talk to Patient about his options. I placed glenda on a mobile phone with pt. Pt agrees to transfer and signed paperwork. I had admitting update pt's contacts to include Glenda.
--- NOTE | 2024-05-02 15:18 | PC.NURSE ---
Rpt given to NISHI Tucker at [facility] ([phone])
== END 2024-05-02 15:20 | disposition short-term general hospital (02) ==
PROVIDERS: Emergency Medicine; Emergency Provider Student in an Organized Health Care Education/Training Program
DX: K80.43 Calculus of bile duct with acute cholecystitis with obstruction (principal); K85.90 Acute pancreatitis without necrosis or infection, unspecified; R11.0 Nausea; I69.954 Hemiplegia and hemiparesis following unspecified cerebrovascular disease affecting left non-dominant side; G40.909 Epilepsy, unspecified, not intractable, without status epilepticus
CPT/HCPCS: 36415; 74177; 74181; 76705; 80053; 81001; 83605; 83690; 85025; 85610; 87077; 87086; 87186; 93005; 96361; 96365; 96366; 96375; 99285; J1885; J2270; J2405; J2543; Q9967

== ENCOUNTER 2024-10-26 20:28 | Emergency (ER) | payer OTHER, SELFPAY ==
[2024-10-26 20:29] VITALS: BP 109/88; PULSE 86; RESP 16; TEMP 36.3; O2SAT 93; BMI 29.0
--- NOTE | 2024-10-26 22:39 | ED_ITS ---
HPI - Dental/Oral General Chief complaint: Dental/Oral Stated complaint: tooth pain Time Seen by Provider: 10/26/24 22:32 Source: patient, EMS, RN notes reviewed and old records reviewed Mode of arrival: EMS History of Present Illness HPI Narrative: 64-year-old male history of prior stroke with left-sided weakness lives [facility] presents with right upper dental pain that started 2 days ago has not seen a dentist in a very long time. Has not had 1 tooth extracted in the past. He has been taking [id number] ibuprofen and Tylenol but pain has been increasing. He notes a little bit of swelling around the site. He has not noticed any fevers, no swelling of the tongue or airway. No changes to voice. He states maybe the cheek feels a little bit swollen but does not noticed a lot of facial swelling. Denies any drainage or purulent discharge. Patient denies any nausea or vomiting. Denies any other new symptoms. Patient states no known drug allergies. No tobacco, occasional alcohol, no recreational drugs. Related Data Home Medications Medication Instructions Recorded Confirmed baclofen 20 mg tablet 20 mg PO BID 05/01/24 05/01/24 diclofenac sodium 1 % topical gel 2 g topical BEDTIME 05/01/24 05/01/24 gabapentin 100 mg capsule 100 mg PO BEDTIME 05/01/24 05/01/24 gabapentin 100 mg capsule 400 mg PO QAM 05/01/24 05/01/24 gabapentin 300 mg capsule 600 mg PO BEDTIME 05/01/24 05/01/24 levetiracetam 500 mg tablet 500 mg PO BID 05/01/24 05/01/24 methocarbamol 500 mg tablet 500 mg PO Q6H PRN Pain (Scale 05/01/24 05/01/24 Score 4-6) olanzapine 10 mg tablet 10 mg PO ONCE PM 05/01/24 05/01/24 oxybutynin chloride 5 mg tablet 5 mg PO BID PRN Bladder Spasms 05/01/24 05/01/24 pantoprazole 40 mg tablet,delayed 40 mg PO DAILY 05/01/24 05/01/24 release trazodone 100 mg tablet 150 mg PO BEDTIME 05/01/24 05/01/24 Previous Rx's Medication Instructions Recorded oxycodone-acetaminophen 5 mg-325 1 tab PO Q6H PRN pain #10 tabs 10/26/24 mg tablet (Percocet) penicillin V potassium 500 mg 500 mg PO Q6H 10 days #40 tabs 10/26/24 tablet Allergies Allergy/AdvReac Type Severity Reaction Status Date / Time tramadol AdvReac Intermediate Vomiting Verified 05/01/24 17:54 Review of Systems Review of Systems ROS Unobtainable: All systems reviewed & are unremarkable except as noted in HPI and below Patient History Social History Smoking Status: Never smoker Smoking Status: Never smoker alcohol intake frequency: 0-2 drinks per day Exam Narrative Exam Narrative: GEN: Chronically ill-appearing male, alert and oriented x 3, patient appears to be in mild distress. HEENT: Atraumatic, pupils are equal round reactive to light, extraocular movements are intact, nares are clear, TMs are clear with no fluid, there is no conjunctival pallor. Throat is clear without any exudates, erythema, tonsillar enlargement or uvular deviation, patient has 1 tooth extracted in the right upper posterior, does have what appears to be a few dental caries, has a little bit of swelling on with the posterior molars but no swelling of the tongue or airway or oropharynx. No appreciable swelling of the cheek. Normal speech, no stridor difficulty with secretions. No cervical lymphadenopathy. HEART: Regular rate and rhythm without murmur, clicks, rubs. LUNGS:Lungs clear to auscultation, no wheezes, rales, crackles, chest moves symmetrically ABD:bowel sounds normal, soft, non-tender, no guarding, rebound, rigidity, no masses noted, no hepatosplenomegaly MSCL: Non-tender, patient has decreased movement of left lower and upper extremity. NEURO:CN 2-12 intact, sensation normal Initial Vital Signs Initial Vital Signs: Vital Signs Temperature 97.3 F L 10/26/24 20:29 Pulse Rate 86 10/26/24 20:29 Respiratory Rate 16 10/26/24 20:29 Blood Pressure 109/88 10/26/24 20:29 Pulse Oximetry 93 10/26/24 20:29 Oxygen Delivery Method Room Air 10/26/24 20:29 Course Orders Ordered: Discontinued Medications Ondansetron HCl (Ondansetron 4 Mg Odt) 4 mg SL NOW ONE Stop: 10/26/24 22:47 Last Admin: 10/26/24 22:59 Dose: 4 mg Documented By: SIL Oxycodone/Acetaminophen (Oxycodone/Acetaminophen 5/325 Tablet) 1 tab PO NOW ONE Stop: 10/26/24 22:47 Last Admin: 10/26/24 22:59 Dose: 1 tab Documented By: SIL Penicillin V Potassium (Penicillin Vk 250 Mg Tablet) 500 mg PO NOW ONE Stop: 10/26/24 22:47 Last Admin: 10/26/24 22:59 Dose: 500 mg Documented By: SIL Vital Signs Vital signs: Vital Signs - 8 hr 10/26/24 20:29 10/26/24 22:49 10/26/24 23:00 Temperature 97.3 F L Pulse Rate 86 75 72 Respiratory Rate 16 Blood Pressure 109/88 Pulse Oximetry 93 92 92 Oxygen Delivery Method Room Air 10/26/24 23:20 10/26/24 23:20 Temperature 97.8 F Pulse Rate 74 Respiratory Rate Blood Pressure 115/73 Pulse Oximetry 92 Oxygen Delivery Method MDM - Dental/Oral MDM Narrative Medical decision making narrative: 64-year-old male history of prior stroke has not had regular dental care appears to be developing a little bit of a dental abscess. There was no fluctuant area that appears to be drainable. Plan for dose of oral pain medication notes some vomiting with tramadol so we will give Zofran well. We will give oral antibiotic and asked patient to follow up with Dentistry. He may need some assistance from his long-term care facility as sounds like he does require assistance with transport and movement. Discharge Plan Departure Patient Disposition: Home Clinical Impression: Dental abscess Instructions: Tooth Abscess Activity Restrictions/Additional Instructions: Please follow up with a dentist, talk with your caregivers at your facility to see the best way to facilitate this. Take oral antibiotics until completed. Prescription sent to You can also take pain medication as prescribed, can take 1-2 tablets Percocet every 6 hours as needed for pain. You can take ibuprofen up to 600 mg every 6 hours as needed with this. Prescription printed. Please return for fevers, new swelling of the lips, tongue or airway, changes to voice, difficulty with swallowing, vomiting or other new or concerning changes. Prescriptions: New oxycodone-acetaminophen [Percocet] 5-325 mg tablet 1 tab PO Q6H PRN (Reason: pain) Qty: 10 0RF penicillin V potassium 500 mg tablet 500 mg PO Q6H 10 Days Qty: 40 0RF No Action methocarbamol 500 mg tablet 500 mg PO Q6H PRN (Reason: Pain (Scale Score 4-6)) levetiracetam 500 mg tablet 500 mg PO BID olanzapine 10 mg tablet 10 mg PO ONCE PM baclofen 20 mg tablet 20 mg PO BID trazodone 100 mg tablet 150 mg PO BEDTIME pantoprazole 40 mg tablet,delayed release (DR/EC) 40 mg PO DAILY gabapentin 300 mg capsule 600 mg PO BEDTIME gabapentin 100 mg capsule 100 mg PO BEDTIME gabapentin 100 mg capsule 400 mg PO QAM oxybutynin chloride 5 mg Tablet 5 mg PO BID PRN (Reason: Bladder Spasms) diclofenac sodium 1 % Gel 2 g TOPICAL BEDTIME Rx Instructions: LLE Referrals: Miscellaneous,Doctor, MD [Primary Care Provider] - Stand Alone Forms: Patient Portal/API/Survey
[2024-10-26 22:49] VITALS: PULSE 75; O2SAT 92
[2024-10-26] MEDS: ONDANSETRON 4 MG ODT SL (22:59)
[2024-10-26] MEDS: OXYCODONE/ACETAMINOPHEN 5/325 TABLET 1 TAB PO (22:59)
[2024-10-26] MEDS: PENICILLIN VK 250 MG TABLET 500 MG PO (22:59)
[2024-10-26 23:00] VITALS: PULSE 72; O2SAT 92
[2024-10-26 23:20] VITALS: BP 115/73; PULSE 74; TEMP 36.6; O2SAT 92
--- NOTE | 2024-10-26 23:58 | PC.NURSE ---
Care transferred to [facility] transport team. Report called to staff at [facility]
== END 2024-10-26 23:54 | disposition home or self-care (01) ==
PROVIDERS: Emergency Provider Emergency Medicine
DX: K04.7 Periapical abscess without sinus (principal)
CPT/HCPCS: 99283

== ENCOUNTER 2025-03-16 09:20 | Observation (INO) | payer OTHER, SELFPAY ==
[2025-03-16] VITALS (9 sets, daily range): BP systolic 109–137; BP diastolic 70–84; PULSE 62–93; RESP 16–20; TEMP 36.1–36.9; O2SAT 92–95; BMI 27.9; BMI 26.9
--- NOTE | 2025-03-16 09:23 | ED.NEUROSD ---
HPI - Neuro Symptoms/Deficit General Chief Complaint: Neuro Symptoms/Deficit Stated Complaint: blurry vision, left leg pain Time Seen by Provider: 03/16/25 09:21 History of Present Illness HPI Narrative: Patient brought in by ambulance from [facility]. Blood sugar 109. Last well known 8:00 p.m. last night. He awoke 8:15 a.m. with these symptoms.. this morning 1 hour ago. Patient complains of bilateral eye blurry vision with difficulty finding words. This is new for him. Patient has history of TBI with known left-sided weakness paralysis which he states is not new. He is awake alert oriented x3. Examination of both eyes individually does have blurry vision in both eyes. No headache. No nausea or vomiting. No chest pain no palpitations. Related Data Home Medications ?Medication ?Instructions ?Recorded ?Confirmed baclofen 20 mg tablet 20 mg PO BID 05/01/24 03/16/25 diclofenac sodium 1 % topical gel 2 g topical BEDTIME 05/01/24 03/16/25 gabapentin 100 mg capsule 100 mg PO BEDTIME 05/01/24 03/16/25 gabapentin 100 mg capsule 400 mg PO QAM PRN CONTRACTURE 05/01/24 03/16/25 gabapentin 300 mg capsule 600 mg PO BEDTIME 05/01/24 03/16/25 levetiracetam 500 mg tablet 500 mg PO BID 05/01/24 03/16/25 methocarbamol 500 mg tablet 500 mg PO Q6H PRN Pain (Scale 05/01/24 03/16/25 Score 4-6) olanzapine 10 mg tablet 10 mg PO ONCE PM 05/01/24 03/16/25 pantoprazole 40 mg tablet,delayed 40 mg PO DAILY 05/01/24 03/16/25 release trazodone 100 mg tablet 150 mg PO BEDTIME 05/01/24 03/16/25 DLCYCLOMINE See Rx Instructions .Route .COMPLEX 03/16/25 03/16/25 Lactobacillus acidophilus 100 mg PO DAILY 03/16/25 03/16/25 (Acidophilus capsule) acetaminophen 500 mg capsule 1,000 mg PO DAILY 03/16/25 03/16/25 calcium carbonate (Calcium 500) 500 mg PO DAILY 03/16/25 03/16/25 cetirizine 10 mg tablet 10 mg PO DAILY PRN allergy symptoms 03/16/25 03/16/25 docusate sodium 100 mg capsule 100 mg PO DAILY PRN constipation 03/16/25 03/16/25 guaifenesin 200 mg tablet 400 mg PO Q4H PRN excessive 03/16/25 03/16/25 (Expectorant) salivation ibuprofen 800 mg tablet 800 mg PO .Q 12HR PRN pain 03/16/25 03/16/25 sertraline 25 mg tablet 25 mg PO DAILY 03/16/25 03/16/25 Allergies Allergy/AdvReac Type Severity Reaction Status Date / Time tramadol AdvReac Intermediate Vomiting Verified 03/16/25 09:37 Review of Systems Review of Systems Narrative: GENERAL: Negative chills, fatigue, malaise, fever, sweats. HEENT: Negative sinus pain, ear pain, sore throat RESPIRATORY: Negative dyspnea, cough CARDIOVASCULAR: Negative chest pain, palpitations GASTROINTESTINAL: Negative vomiting, nausea, abdominal pain : Negative dysuria, frequency, hematuria MUSCULOSKELETAL: Negative muscle or bony pain SKIN: Negative rash, skin lesions NEUROLOGIC: Negative weakness, numbness, positive speech difficulty positive blurry vision ROS Unobtainable: All systems reviewed & are unremarkable except as noted in HPI and below Patient History Social History household members: other Smoking Status: Never smoker alcohol intake: former alcohol intake frequency: 0-2 drinks per day Exam Narrative Exam Narrative: GENERAL: in no distress, not toxic not dyspneic HEAD: Normocephalic. EYES: Pupils equal round, isolation each eye for exam. Has ability to identify correct finger number on my hands. There but they do appear blurry. No double vision. ENT: Mucous membranes moist. NECK: Trachea midline. CARDIOVASCULAR: Regular rate and rhythm RESPIRATORY: Clear to auscultation. Breath sounds equal bilaterally. No wheezes, rales, or rhonchi. GASTROINTESTINAL: Abdomen soft, non-tender EXTREMITIES: No gross deformities. BACK: No flank tenderness. NEURO: AOx4. 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 Patient has baseline weakness paralysis on the left upper extremity and lower extremity. This is not new. Has slow slightly slurred speech, patient is speaks very slowly which is at baseline. SKIN: Warm and dry PSYCH: Not anxious, is cooperative Initial Vital Signs Initial Vital Signs: Vital Signs Pulse Rate 82 03/16/25 09:33 Pulse Oximetry 92 03/16/25 09:33 Scores NIH Stroke Scale Level of Conciousness: Alert, keenly responsive Ask month/age: Answers both questions correctly. Open/close eyes, close hand: Performs both tasks correctly Best gaze horizontal: Normal Visual waterman: No visual loss Facial palsy: Minor paralysis, flattened nasolabial fold, asymmetry on smiling Left arm drift: No movement Right arm drift: No drift for full 10 sec Left leg drift: No movement Right leg drift: No drift for full 5 sec Limb ataxia: Absent Sensory on face/arms/legs: Normal, no sensory loss Best language: Mild to moderate, slurs some words Dysarthria: Mild to mod,some slurring Extinction or inattention: No abnormality Total NIH Stroke scale score: 11 Course Orders Ordered: ED Orders 03/16/25 11:00 Urinalysis and Microscopic Stat Hydrocodone Bitart/Acetaminophen (Hydrocodone/Acet 5/325 Tablet) 1 tab PO Q4H PRN PRN Reason: Pain, Moderate (4-6) Last Admin: 03/16/25 12:22 Dose: 1 tab Documented By: EBONY Baclofen (Baclofen 10 Mg Tablet) 20 mg PO BID [facility] Last Admin: 03/16/25 12:23 Dose: 20 mg Documented By: EBONY Diclofenac Sodium (Diclofenac 1% Gel 100 Gm) 1 applic TOP BEDTIME LEYLA Gabapentin (Gabapentin 300 Mg Capsule) 600 mg PO BEDTIME LEYLA Gabapentin (Gabapentin 100 Mg Capsule) 400 mg PO DAILY LEYLA Gabapentin (Gabapentin 100 Mg Capsule) 100 mg PO BEDTIME LEYLA Guaifenesin (Guaifenesin Solution 100 Mg/5 Ml Udc) 200 mg PO Q4HR PRN PRN Reason: Cough Last Admin: 03/16/25 13:41 Dose: 200 mg Documented By: EBONY Heparin Sodium (Porcine) (Heparin 5,000 Unit/Ml Vial) 5,000 unit SUBCUT BID [facility] Last Admin: 03/16/25 12:22 Dose: 5,000 unit Documented By: EBONY Hydromorphone HCl (Hydromorphone Hcl 0.5 Mg/0.5 Ml Syringe) 0.5 mg IV Q2H PRN PRN Reason: Pain, Severe (7-10) Sodium Chloride (Normal Saline 0.9%) 1,000 mls @ 75 mls/hr IV CONT [facility] Last Admin: 03/16/25 12:22 Dose: 75 mls/hr Documented By: EBONY Magnesium Sulfate (Magnesium Sulfate) 2 gm in 50 mls @ 25 mls/hr IV NOW ONE Stop: 03/16/25 20:59 Lactobacillus Acidophilus (Lactobacillus Acidophilus Tablet) 1 each PO DAILY [facility] Levetiracetam (Levetiracetam 250 Mg Tablet) 500 mg PO BID [facility] Last Admin: 03/16/25 12:22 Dose: 500 mg Documented By: EBONY Methocarbamol (Methocarbamol 500 Mg Tablet) 500 mg PO Q6H PRN PRN Reason: Pain (Scale Score 4-6) Last Admin: 03/16/25 14:44 Dose: 500 mg Documented By: EBONY Naloxone HCl (Naloxone 0.4 Mg/Ml Vial) 0.2 mg IV Q2MIN PRN PRN Reason: Opiate Reversal Olanzapine (Olanzapine 2.5 Mg Tablet) 10 mg PO BEDTIME [facility] Ondansetron HCl (Ondansetron 4 Mg/2 Ml Inj) 4 mg IV Q8HR PRN PRN Reason: Nausea And Vomiting Oxybutynin (Oxybutynin 5 Mg Tablet) 5 mg PO BID PRN PRN Reason: Bladder Spasms Oxycodone HCl (Oxycodone Ir 10 Mg Tablet) 10 mg PO Q3H PRN PRN Reason: Pain, Severe (7-10) Oxycodone/Acetaminophen (Oxycodone/Acetaminophen 5/325 Tablet) 1 tab PO Q6H PRN PRN Reason: pain Pantoprazole Sodium (Pantoprazole Dr 40 Mg Tablet) 40 mg PO DAILY [facility] Last Admin: 03/16/25 12:22 Dose: 40 mg Documented By: EBONY Sertraline HCl (Sertraline 50 Mg Tablet) 25 mg PO DAILY [facility] Trazodone HCl (Trazodone 50 Mg Tablet) 150 mg PO BEDTIME [facility] Discontinued Medications Guaifenesin (Guaifenesin Er 600 Mg Tab) 600 mg PO Q12HR PRN PRN Reason: Cough Sodium Chloride (Normal Saline 0.9%) 1,000 mls @ 1,000 mls/hr IV BOLUS ONE Stop: 03/16/25 10:20 Last Infusion: 03/16/25 11:23 Dose: Infused Documented By: Admin: 03/16/25 10:12 Dose: 1,000 mls/hr Documented By: STEFFI Vital Signs Vital signs: Vital Signs - 8 hr 03/16/25 09:33 03/16/25 09:34 03/16/25 09:34 Temperature Pulse Rate 82 82 Respiratory Rate Blood Pressure 118/80 Pulse Oximetry 92 93 Oxygen Delivery Method 03/16/25 09:36 Temperature 98.4 F Pulse Rate 62 Respiratory Rate 16 Blood Pressure 124/84 Pulse Oximetry 92 Oxygen Delivery Method Room Air MDM - Neuro Symptoms/Deficit Lab Data 03/16/25 09:16 03/16/25 09:16 Labs: Lab Results 03/16/25 03/16/25 Range/Units 09:16 09:20 WBC 11.8 H (4.5-11.0) X10^3/uL RBC 5.41 (4.5-5.9) X10^6/uL Hgb 16.3 (13.5-17.5) g/dL Hct 48.3 (41-53) % MCV 89.3 (80-100) fL MCH 30.1 (26-34) PG MCHC 33.7 (30-36) % RDW 14.0 (11.6-14.8) % Plt Count 311 (150-400) X10^3/uL Neut % (Auto) 73.6 (50-75) % Lymph % (Auto) 16.8 L (25-40) % Cassia % (Auto) 6.0 (3-14) % Eos % (Auto) 2.9 (2-4) % Baso % (Auto) 0.7 (0-2) % Neut # (Auto) 8700 H (1977-7626) /uL Lymph # (Auto) 2000 (8823-1723) /uL Cassia # (Auto) 700 (0-900) /uL Eos # (Auto) 300 (0-450) /uL Baso # (Auto) 100 (0-100) /uL PT 11.3 (9.4-12.5) SECONDS INR 1.0 (0.9-1.3) APTT 32 (25.1-36.5) SECONDS Sodium 138 (137-145) mmol/L Potassium 3.7 (3.4-5.1) mmol/L Chloride 102 (98-107) mmol/L Carbon Dioxide 27 (22-32) mmol/L BUN 21 H (9-20) mg/dL Creatinine 0.47 L (0.66-1.25) mg/dL Estimated GFR > 60 (>60) mL/min BUN/Creatinine Ratio 44.7 H (6-22) Glucose 93 (70-99) mg/dL POC Whole Bld Glucose 94 (70-99) mg/dL Calcium 9.0 (8.4-10.2) mg/dL Magnesium 1.9 (1.6-2.3) mg/dL Total Bilirubin 0.5 (0.2-1.3) mg/dL AST 38 (17-59) IU/L ALT 59 H (<50) IU/L Alkaline Phosphatase 77 (38-126) U/L Total Creatine Kinase 47 L (55-170) U/L Troponin I < 0.012 (0.01-0.034) ng/mL Total Protein 7.8 (6.3-8.2) g/dL Albumin 4.3 (3.5-5.0) g/dL Globulin 3.5 (1.7-4.1) g/dL Albumin/Globulin Ratio 1.2 (1.0-2.8) Imaging Data CT scan - head: Radiologist's Impression: [place] [address] CT Scan Report Signed Patient: Vitaly Guzmán MR#: [id number] : 1960 Acct:[id number] Age/Sex: 64 / M Date of Service: 03/16/25 Loc: ED Accession Number: [id number] Procedure: CT Stroke Ordering Provider: Gume Holloway MD PROCEDURE: CT STROKE INDICATIONS: Blurry vision slurred speech TECHNIQUE: Noncontrast 4.5 mm thick angled axial sections acquired from the foramen magnum to the vertex, with coronal reformats. For radiation dose reduction, the following was used: automated exposure control, adjustment of mA and/or kV according to patient size. COMPARISON: None. FINDINGS: Image quality: Diagnostic. CSF spaces: Basal cisterns are patent. No extra-axial fluid collections. The ventricles are symmetric in size and shape. Brain: No intracranial bleeds or mass effect. Encephalomalacia in right temporal parietal region is seen with ex vacuo dilatation of right lateral ventricle. There is cerebral volume loss, with resultant ventricular and sulcal prominence. There are periventricular and deep white matter chronic small vessel ischemic changes. There is intracranial internal carotid artery atherosclerosis. Skull and face: Postsurgical changes from prior right temporal parietal craniotomy. No acute skull fracture. Sinuses: Visualized sinuses and mastoids are clear. IMPRESSION: 1. No acute intracranial pathology. 2. Prior right temporal parietal craniotomy with extensive encephalomalacia in right cerebral hemisphere and ex vacuo dilatation of right lateral ventricle. Findings were discussed with ordering physician at the time of dictation. This study fulfills neurological imaging criteria for inclusion or exclusion of acute stroke therapies based on available published neurological guidelines. Dictated by: Edward Fragoso M.D. on 03/16/2025 at 9:36 Approved by: Edward Fragoso M.D. on 03/16/2025 at 9:40 CTA - brain/neck: Radiologist's Impression: [address] [address] [address] Scan Report Signed Patient: Vitaly Guzmán MR#: [id number] : 1960 Acct:[id number] Age/Sex: 64 / M Date of Service: 03/16/25 Loc: ED Accession Number: [id number] Procedure: CT angio head and neck Ordering Provider: Gume Holloway MD PROCEDURE: CT ANGIO HEAD AND NECK INDICATIONS: Blurry vision slurred speech TECHNIQUE: After the administration of intravenous contrast, 1 mm thick sections acquired from the aortic arch through the [place] of [place]. 3-dimensional zusxbay-wlbkijzra-txispjhdgm (MIP) and/or volume rendering reformats were acquired of the central intracranial vasculature and neck separately. For radiation dose reduction, the following was used: automated exposure control, adjustment of mA and/or kV according to patient size. COMPARISON: None. FINDINGS: Image quality: Diagnostic. Cerebral CT Angiogram: Internal carotid arteries: No acute findings. Intracranial ICA are patent with no significant stenosis. No occlusion. No aneurysm. Anterior cerebral arteries: Unremarkable. No significant stenosis. No occlusion. No aneurysm. Middle cerebral arteries: Unremarkable. No significant stenosis. No occlusion. No aneurysm. Posterior cerebral arteries: Unremarkable. No significant stenosis. No occlusion. No aneurysm. Basilar artery: Unremarkable. No significant stenosis. No occlusion. No aneurysm. Vertebral arteries: Unremarkable as visualized. Dural venous sinuses: Unremarkable given phase of enhancement. Other: Arterial phase appearance of the brain parenchyma is unremarkable. Neck CT Angiogram: Internal carotid arteries: Unremarkable. No significant stenosis. No dissection or occlusion. Common carotid arteries: Unremarkable. No significant stenosis. No dissection or occlusion. External carotid arteries: Unremarkable. No occlusion. Vertebral arteries: Dominant left vertebral artery. No significant stenosis. No dissection or occlusion. Aortic Arch and Mediastinum: Partially visualized aortic arch unremarkable without evidence of aneurysm. Origins of the great vessels unremarkable. Other: Arterial phase soft tissues of the neck and chest are unremarkable. IMPRESSION: 1. No significant intracranial arterial abnormality is seen. 2. No significant abnormality is seen within the arteries of the neck. Any quantitative measurements of stenosis were performed using NASCET criteria. Dictated by: Edward Fragoso M.D. on 03/16/2025 at 9:51 Approved by: Edward Fragoso M.D. on 03/16/2025 at 9:54 [facility] Narrative Medical decision making narrative: Patient brought in by ambulance from [facility]. Blood sugar 109. Last well known 8:00 p.m. last night. A awoke 8:15 a.m. this morning with these symptoms This morning 1 hour ago. Patient complains of bilateral eye blurry vision with difficulty finding words. This is new for him. Patient has history of TBI with known left-sided weakness paralysis which he states is not new. He is awake alert oriented x3. Examination of both eyes individually does have blurry vision in both eyes. No headache. No nausea or vomiting. No chest pain no palpitations. MDM After history and exam, CBC CMP CT head CT angiogram head and neck EKG troponin PT PTT INR urinalysis neurology consult Differential considered: Includes but not limited to TIA stroke UTI dehydration Medical records reviewed: No recent visit for this complaint Lab Test results independently reviewed as above. Pertinent findings: WBC 11.8 hemoglobin 16.3 BUN 21 creatinine 0.47 GFR greater than 60 glucose 93 troponin less than 0.012 Independently reviewed EKG normal sinus rhythm rate 86 Imaging studies independently reviewed: CT head CT angiogram head and neck no acute finding Consultations: 10:40 a.m.. Spoke with hospitalist, dr sinclair, will admit Re-evaluations: 10:44 a.m.. Updated family, sister, with patient at bedside, she does agree slight droop on the right lip. They do agree understand need for admission for balance and workup for TIA/stroke. Discussion: Patient is outside window for TNK. Last well known 8:00 p.m. last night. More than 6 hours ago.. No large vessel occlusion on CT angiogram. Diagnosis: tia Discharge Plan Departure Patient Disposition: Admitted as Observation Clinical Impression: Brain TIA Admit Date/Time: 03/16/25 10:44 Admit Provider: Bulmaro Sinclair
[2025-03-16 09:27] LABS: Add Manual Diff / Slide Review NO; Hematocrit 48.3 % (41-53); Hemoglobin 16.3 g/dL (13.5-17.5); Lymphocytes Absolute Auto 2000 /uL (1100-4500); Mean Corpuscular HGB Conc 33.7 % (30-36); Mean Corpuscular Hemoglobin 30.1 PG (26-34); Mean Corpuscular Volume 89.3 fL (80-100); Platelet Count 311 X10^3/uL (150-400)
[2025-03-16 09:36] LABS: INR 1.0 (0.9-1.3); Prothrombin Time 11.3 SECONDS (9.4-12.5)
[2025-03-16 09:39] LABS: PTT Partial Thromboplastin Tim 32 SECONDS (25.1-36.5)
[2025-03-16 09:46] LABS: Alanine Aminotransferase 59 IU/L (<50); Albumin 4.3 g/dL (3.5-5.0); Albumin Globulin Ratio 1.2 (1.0-2.8); Alkaline Phosphatase 77 U/L (38-126); Blood Urea Nitrogen 21 mg/dL (9-20); Calcium 9.0 mg/dL (8.4-10.2); Carbon Dioxide 27 mmol/L (22-32); Chloride 102 mmol/L (98-107); Creatine Kinase 47 U/L (55-170); Estimated Glomerular Filt Rate > 60 mL/min (>60); Globulin 3.5 g/dL (1.7-4.1); Glucose 93 mg/dL (70-99); HEMOLYSIS 19 (0-50); Potassium 3.7 mmol/L (3.4-5.1); Sodium 138 mmol/L (137-145); Total Protein 7.8 g/dL (6.3-8.2)
--- NOTE | 2025-03-16 09:47 | PC.NURSE ---
At pt baseline pt has left sided deficits (unable to move left side)
--- NOTE | 2025-03-16 09:57 | EKG_ITS ---
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
[2025-03-16 09:58] LABS: Troponin I < 0.012 ng/mL (0.01-0.034)
[2025-03-16] MEDS: SODIUM CHLORIDE 0.9% 1,000 ML 1000 ML IV (10:12)
--- NOTE | 2025-03-16 11:08 | PC.NURSE ---
@ 0920. Blood sugar 94
--- NOTE | 2025-03-16 11:13 | DI.MRI.S_ITS ---
PROCEDURE: MR HEAD/BRAIN WO CON INDICATIONS: Stroke-like symptoms TECHNIQUE: Non-contrast axial T1 spin echo, axial T2 fast spin echo, sagittal and axial FLAIR, coronal T2 fast spin echo, axial gradient echo, axial diffusion and ADC through the brain. COMPARISON: [facility], CT, CT STROKE, 03/16/2025, 9:27. [facility], CT, CT ANGIO HEAD AND NECK, 03/16/2025, 9:27. FINDINGS: Image quality: This examination is limited by involuntary motion artifact. CSF spaces: Ex vacuo dilatation can be seen involving the right lateral ventricle. Basal cisterns are patent. No extra-axial fluid collections. Brain: There is a significant remote right MCA territory infarction seen. Hemosiderin deposition can be seen within the prior infarct. No intracranial mass effects. There is cerebral volume loss for age. There are periventricular and deep white matter chronic small vessel ischemic changes. Brainstem appears normal. Diffusion-weighted images show no acute infarct. Normal intravascular flow voids are present. Skull and face: Prior right-sided craniotomy change can be seen. Calvarial bone marrow is normal in signal. Orbits are normal. Sinuses: Sinuses and mastoids are clear. IMPRESSION: No findings of acute or subacute infarction can be seen. Remote MCA territory infarction seen, with associated prior hemorrhage and ex vacuo dilatation of the right lateral ventricle. Overlying craniotomy change can be seen. Dictated by: Joshua Gee M.D. on 03/16/2025 at 11:17 Approved by: Joshua Gee M.D. on 03/16/2025 at 11:18
--- NOTE | 2025-03-16 11:14 | DI.ECHO.S_ITS ---
[facility]---------+ [facility] : : [address] : : [place] : : [id number] : : Phone: [phone] Echocardiogram Report + + :Name: NIKKI RODRIGEZ Study Date: 03/16/2025 Height: 72 in : :Hospital ReadingLocation: Weight: 206 lb : : Gender: Male BSA: 2.2 m2 : :: 1960 Age: 64 yrs BP: 131/81 mmHg: :Reason For Study: STROKE LIKE SYMPTOMS : :Ordering Physician: NELIDA, : :GILBERT Performed By: Annemarie Sewell : :Referring: GILBERT KRAUSE : + + Interpretation Summary Agitated saline study demonstrates a [id number]-[id number] shunt. Normal biventricular size and systolic function. LVEF is 55 to 60%. Normal atrial sizes. No significant valvular pathology is noted. Other findings as below. Procedure: A two-dimensional transthoracic echocardiogram with color flow and Doppler was performed. The study quality was technically adequate. There is no prior echocardiogram noted for this patient. A saline contrast injection was performed to assess for cardiac shunting. The injection was performed through an intravenous line in the right arm. The patient was in sinus rhythm with heart rates between 79-85 bpm during the exam. Left Ventricle: The left ventricle is normal in size and wall thickness. The ejection fraction is estimated to be 55-60%. Normal diastolic function. Right Ventricle: The right ventricle is normal in size and function. Atria: The left atrial size is normal. Right atrial size is normal. Injection of contrast documented an interatrial shunt. Mitral Valve: There is a flat closure plane of the the mitral valve leaflets. There is trace mitral regurgitation. Aortic Valve: The aortic valve is trileaflet. The aortic valve opens well. There is no aortic valve stenosis. There is trace aortic regurgitation. Tricuspid Valve: The tricuspid valve leaflets are thin and pliable. There is mild tricuspid regurgitation. Pulmonary artery pressures cannot be estimated because of the lack of a measurable TR jet velocity but the IVC suggests a CVP of around 3 mmHg. Pulmonic Valve: The pulmonic valve leaflets are thin and pliable; valve motion is normal. There is mild pulmonic regurgitation. Great Vessels: The aortic root is normal size. The dimensions of the ascending aorta are normal. The inferior vena cava was not well visualized. Pericardium/ Pleura There is no pericardial effusion. There is no pleural effusion. MMode/2D Measurements & Calculations LVIDd: 4.5 cm LVOT diam: 2.4 cm LVIDs: 2.9 cm Ao root diam: 4.0 cm FS: 35.3 % asc Aorta Diam: 3.4 cm EPSS: 0.75 cm IVSd: 0.90 cm LVPWd: 0.86 cm LV schulte. diameter/BSA (cm/m^2): 2.1 LV sys. diameter/BSA (cm/m^2): 1.4 LA A2 area: 15.8 cm2 RA long axis: 5.3 cm LA A4 area: 11.6 cm2 RA area: 12.6 cm2 LA length (vol): 4.4 cm RA vol: 25.7 ml LA vol: 35.3 ml RA : 11.9 ml/m2 LA vol index: 16.4 ml/m2 RVD1 (basal): 4.2 cm TAPSE: 1.8 cm Doppler Measurements & Calculations Ao V2 max: 105.7 cm/sec LVOT Max Rj: 89.8 cm/sec Ao V2 mean: 68.5 cm/sec LV V1 max P.2 mmHg Ao max P.3 mmHg LV V1 VTI: 11.8 cm Ao mean P.3 mmHg MANAN(I,D): 3.7 cm2 Ao V2 VTI: 14.6 cm MANAN(V,D): 3.9 cm2 sev ratio: 0.81 MANAN indexed to BSA (cm^2/m^2): 1.7 MV E max rj: 44.1 cm/sec PA pr(Accel): 37.9 mmHg MV A max rj: 56.4 cm/sec MV E/A: 0.78 Med Peak E' Rj: 6.0 cm/sec E/E' med: 7.4 Lat Peak E' Rj: 6.1 cm/sec E/E' lat: 7.3 E/e' average: 7.3 MV dec time: 0.18 sec SV(LVOT): 54.4 ml Reading Physician:04:29 PM
[2025-03-16 11:26] LABS: Appearance Urine UA CLEAR; Bilirubin Urine UA NEGATIVE (NEGATIVE); Color Urine UA YELLOW; Glucose Urine UA NEGATIVE (Negative); Ketones Urine UA NEGATIVE (NEGATIVE); Leukocyte Esterase Urine UA 1+ (NEGATIVE); Nitrite Urine UA NEGATIVE (Negative); Occult Blood Urine UA NEGATIVE (Negative); Protein Urine UA NEGATIVE (Negative); Specific Gravity Urine UA 1.010 (1.000-1.035); Urobilinogen Urine UA 2.0 E.U./dL (0.2); pH Urine UA 7.0 (4.5-8.0)
[2025-03-16 11:35] LABS: Culture Indicated Urine Specimen Cultured
[2025-03-16] MEDS: HYDROCODONE/ACET 5/325 TABLET 1 TAB PO (12:22)
[2025-03-16] MEDS: SODIUM CHLORIDE 0.9% 1,000 ML 75 ML IV (12:22)
[2025-03-16] MEDS: HEPARIN 5,000 UNIT/ML VIAL 5000 UNIT SUBCUT ×2 (12:22→21:03)
[2025-03-16] MEDS: PANTOPRAZOLE DR 40 MG TABLET PO (12:22)
[2025-03-16] MEDS: BACLOFEN 10 MG TABLET 20 MG PO ×2 (12:23→21:03)
[2025-03-16] MEDS: guaiFENesin Solution 100 MG/5 ML UDC 200 MG PO (13:41)
--- NOTE | 2025-03-16 16:37 | PM.HP.1 ---
History of Present Illness History of Present Illness Date Patient Seen: 03/16/25 Chief complaint: blurry vision, left leg pain Narrative: Chief complaint: Blurred vision previous history of stroke History of present illness: 64-year-old male with a previous history of stroke with left-sided contractures at a nursing facility noted that he had blurred vision this morning. 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 Review of systems: No fever or chills No headache No new paresthesia or weakness No chest pain palpitations wheezing or shortness a breath Nausea vomiting diarrhea constipation No urinary symptoms Physical exam: Anxious male but no acute physical distress chronically ill and contracted HEENT unremarkable Heart rate and rhythm no murmurs Lungs clear Abdomen nontender bowel sounds present Extremities no cyanosis For objective data laboratory and imaging please see the bottom of the note: Assessment and plan: Blurred vision because of history of previous stroke working up for stroke-like symptoms all negative imaging Overnight observation for cardiac monitoring echocardiogram Continue previous secondary prophylaxis for CVA DVT prophylaxis with subcutaneous heparin Code status: Full code blue 55 minutes were involved in evaluation of this patient including [id number] interview evaluation with patient family members physical examination review of objective laboratory and imaging as well as direct visualization of imaging [facility] Social History household members: other Smoking Status: Never smoker alcohol intake: former Meds Home Medications and Allergies Home Medications ?Medication ?Instructions ?Recorded ?Confirmed ?Type baclofen 20 mg tablet 20 mg PO BID 05/01/24 03/16/25 History diclofenac sodium 1 % topical gel 2 g topical BEDTIME 05/01/24 03/16/25 History gabapentin 100 mg capsule 100 mg PO BEDTIME 05/01/24 03/16/25 History gabapentin 100 mg capsule 400 mg PO QAM PRN CONTRACTURE 05/01/24 03/16/25 History gabapentin 300 mg capsule 600 mg PO BEDTIME 05/01/24 03/16/25 History levetiracetam 500 mg tablet 500 mg PO BID 05/01/24 03/16/25 History methocarbamol 500 mg tablet 500 mg PO Q6H PRN Pain (Scale 05/01/24 03/16/25 History Score 4-6) olanzapine 10 mg tablet 10 mg PO ONCE PM 05/01/24 03/16/25 History pantoprazole 40 mg tablet,delayed 40 mg PO DAILY 05/01/24 03/16/25 History release trazodone 100 mg tablet 150 mg PO BEDTIME 05/01/24 03/16/25 History DLCYCLOMINE See Rx Instructions .Route .COMPLEX 03/16/25 03/16/25 History Lactobacillus acidophilus 100 mg PO DAILY 03/16/25 03/16/25 History (Acidophilus capsule) acetaminophen 500 mg capsule 1,000 mg PO DAILY 03/16/25 03/16/25 History calcium carbonate (Calcium 500) 500 mg PO DAILY 03/16/25 03/16/25 History cetirizine 10 mg tablet 10 mg PO DAILY PRN allergy symptoms 03/16/25 03/16/25 History docusate sodium 100 mg capsule 100 mg PO DAILY PRN constipation 03/16/25 03/16/25 History guaifenesin 200 mg tablet 400 mg PO Q4H PRN excessive 03/16/25 03/16/25 History (Expectorant) salivation ibuprofen 800 mg tablet 800 mg PO .Q 12HR PRN pain 03/16/25 03/16/25 History sertraline 25 mg tablet 25 mg PO DAILY 03/16/25 03/16/25 History Allergies Allergy/AdvReac Type Severity Reaction Status Date / Time tramadol AdvReac Intermediate Vomiting Verified 03/16/25 09:37 Exam Vital Signs (past 8 hours): - 03/16/25 09:33 03/16/25 09:34 03/16/25 09:34 Temperature Pulse Rate 82 82 Respiratory Rate Blood Pressure 118/80 Pulse Oximetry 92 93 Oxygen Delivery Method 03/16/25 09:36 03/16/25 10:00 03/16/25 10:01 Temperature 98.4 F Pulse Rate 62 93 H 90 Respiratory Rate 16 18 20 Blood Pressure 124/84 Pulse Oximetry 92 Oxygen Delivery Method Room Air 03/16/25 10:01 03/16/25 10:30 03/16/25 10:30 Temperature Pulse Rate 81 Respiratory Rate 18 Blood Pressure 137/70 127/73 Pulse Oximetry 93 Oxygen Delivery Method 03/16/25 10:50 03/16/25 11:00 03/16/25 11:12 Temperature Pulse Rate 82 80 Respiratory Rate 20 17 Blood Pressure Pulse Oximetry 94 95 Oxygen Delivery Method Room Air 03/16/25 11:12 Temperature Pulse Rate Respiratory Rate Blood Pressure 131/81 Pulse Oximetry Oxygen Delivery Method Oxygen Delivery Method Room Air Objective Labs 03/16/25 09:16 03/16/25 09:16 Labs: Laboratory Results - last 24 hr 03/16/25 03/16/25 03/16/25 09:16 09:20 11:00 WBC 11.8 H RBC 5.41 Hgb 16.3 Hct 48.3 MCV 89.3 MCH 30.1 MCHC 33.7 RDW 14.0 Plt Count 311 Neut % (Auto) 73.6 Lymph % (Auto) 16.8 L [place] % (Auto) 6.0 Eos % (Auto) 2.9 Baso % (Auto) 0.7 Neut # (Auto) 8700 H Lymph # (Auto) 2000 [place] # (Auto) 700 Eos # (Auto) 300 Baso # (Auto) 100 PT 11.3 INR 1.0 APTT 32 Sodium 138 Potassium 3.7 Chloride 102 Carbon Dioxide 27 BUN 21 H Creatinine 0.47 L Estimated GFR > 60 BUN/Creatinine Ratio 44.7 H Glucose 93 POC Whole Bld Glucose 94 Calcium 9.0 Total Bilirubin 0.5 AST 38 ALT 59 H Alkaline Phosphatase 77 Total Creatine Kinase 47 L Troponin I < 0.012 Total Protein 7.8 Albumin 4.3 Globulin 3.5 Albumin/Globulin Ratio 1.2 Urine Color Yellow Urine Appearance Clear Urine pH 7.0 Ur Specific [place] 1.010 Urine Protein Negative Urine Glucose (UA) Negative Urine Ketones Negative Urine Occult Blood Negative Urine Nitrate Negative Urine Bilirubin Negative Urine Urobilinogen 2.0 H Ur Leukocyte Esterase 1+ H Urine RBC Cancelled Urine WBC Ur Squamous Epith Cells Ur Transition Epith Cell Ur Renal Epithelial Cell Calcium Oxalate Crystal Uric Acid Crystals Triple Phos Crystals Other Crystals Amorphous Sediment Urine Bacteria Hyaline Casts Granular Casts RBC Casts WBC Casts Other Casts Urine Mucus Urine Trichomonas Urine Yeast Urine Sperm Ur Culture Indicated? Micro UA Comment Vol Urine Centrifuged 03/16/25 03/16/25 03/16/25 11:00 11:00 11:00 WBC RBC Hgb Hct MCV MCH MCHC RDW Plt Count Neut % (Auto) Lymph % (Auto) [place] % (Auto) Eos % (Auto) Baso % (Auto) Neut # (Auto) Lymph # (Auto) [place] # (Auto) Eos # (Auto) Baso # (Auto) PT INR APTT Sodium Potassium Chloride Carbon Dioxide BUN Creatinine Estimated GFR BUN/Creatinine Ratio Glucose POC Whole Bld Glucose Calcium Total Bilirubin AST ALT Alkaline Phosphatase Total Creatine Kinase Troponin I Total Protein Albumin Globulin Albumin/Globulin Ratio Urine Color Urine Appearance Urine pH Ur Specific [place] Urine Protein Urine Glucose (UA) Urine Ketones Urine Occult Blood Urine Nitrate Urine Bilirubin Urine Urobilinogen Ur Leukocyte Esterase Urine RBC 0-1/hpf Urine WBC Cancelled 10-30/hpf H Ur Squamous Epith Cells Cancelled 0-1 /hpf Ur Transition Epith Cell Cancelled Ur Renal Epithelial Cell Cancelled Calcium Oxalate Crystal Cancelled Uric Acid Crystals Cancelled Triple Phos Crystals Cancelled Other Crystals Cancelled Amorphous Sediment Cancelled Urine Bacteria Cancelled Hyaline Casts Granular Casts RBC Casts WBC Casts Other Casts Urine Mucus Urine Trichomonas Urine Yeast Urine Sperm Ur Culture Indicated? Micro UA Comment Vol Urine Centrifuged 03/16/25 03/16/25 03/16/25 11:00 11:00 11:00 WBC RBC Hgb Hct MCV MCH MCHC RDW Plt Count Neut % (Auto) Lymph % (Auto) [place] % (Auto) Eos % (Auto) Baso % (Auto) Neut # (Auto) Lymph # (Auto) [place] # (Auto) Eos # (Auto) Baso # (Auto) PT INR APTT Sodium Potassium Chloride Carbon Dioxide BUN Creatinine Estimated GFR BUN/Creatinine Ratio Glucose POC Whole Bld Glucose Calcium Total Bilirubin AST ALT Alkaline Phosphatase Total Creatine Kinase Troponin I Total Protein Albumin Globulin Albumin/Globulin Ratio Urine Color Urine Appearance Urine pH Ur Specific [place] Urine Protein Urine Glucose (UA) Urine Ketones Urine Occult Blood Urine Nitrate Urine Bilirubin Urine Urobilinogen Ur Leukocyte Esterase Urine RBC Urine WBC Ur Squamous Epith Cells Ur Transition Epith Cell Ur Renal Epithelial Cell Calcium Oxalate Crystal Uric Acid Crystals Triple Phos Crystals Other Crystals Amorphous Sediment Urine Bacteria Few (2-10) H Hyaline Casts Cancelled Granular Casts Cancelled RBC Casts Cancelled WBC Casts Cancelled Other Casts Cancelled Urine Mucus Cancelled Urine Trichomonas Cancelled Urine Yeast Cancelled Urine Sperm Cancelled Ur Culture Indicated? Cancelled Specimen cultured Micro UA Comment Cancelled Vol Urine Centrifuged Cancelled 10ml (spun) Assessment & Plan Time-Based Coding :: [TOTAL MINUTES] spent with patient and on the chart (including review of chart, obtaining history, exam, reviewing outside data, placing orders, documenting exam and treatment plan, and counseling patient) on [DATE]. Quality VTE Deep Vein Thrombosis/Pulmonary Embolism Present on Admission: No
[2025-03-16 18:56] LABS: Magnesium 1.9 mg/dL (1.6-2.3)
[2025-03-16] MEDS: TRAZODONE 50 MG TABLET 150 MG PO (21:02)
[2025-03-16] MEDS: GABAPENTIN 300 MG CAPSULE 600 MG PO (21:02)
[2025-03-16] MEDS: GABAPENTIN 100 MG CAPSULE PO (21:03)
[2025-03-16] MEDS: DICLOFENAC 1% GEL 100 GM 1 APPLIC TOP (21:15)
[2025-03-17 02:00] VITALS: BP 117/79; PULSE 67; RESP 17; TEMP 36.1; O2SAT 95
[2025-03-17] MEDS: SODIUM CHLORIDE 0.9% 1,000 ML 75 ML IV (03:13)
[2025-03-17 08:04] VITALS: BP 119/73; PULSE 70; RESP 17; TEMP 36.7; O2SAT 94
[2025-03-17] MEDS: HEPARIN 5,000 UNIT/ML VIAL 5000 UNIT SUBCUT (09:24)
[2025-03-17] MEDS: SERTRALINE 50 MG TABLET 25 MG PO (09:24)
[2025-03-17] MEDS: BACLOFEN 10 MG TABLET 20 MG PO (09:25)
[2025-03-17] MEDS: OXYCODONE/ACETAMINOPHEN 5/325 TABLET 1 TAB PO (09:25)
[2025-03-17] MEDS: GABAPENTIN 100 MG CAPSULE 400 MG PO (09:25)
[2025-03-17] MEDS: LACTOBACILLUS ACIDOPHILUS TABLET 1 EACH PO (09:26)
[2025-03-17] MEDS: PANTOPRAZOLE DR 40 MG TABLET PO (09:26)
[2025-03-17] MEDS: MAGNESIUM HYDROXIDE 30 ML UDC PO (10:33)
--- NOTE | 2025-03-17 10:40 | CM.DANOTE ---
DCP Assessment Note: Pt is a 64yo male, resident of [facility], is admitted for TIA work up. Pt is a resident at [facility]. Pt's PCP is unknown and insurance is [employer]. Reviewed chart and discussed with multidisciplinary team pt's medical status and initial discharge needs. Per hospitalist, pt MRI is negative for TIA and is cleared for discharge home. DCP attempted to meet with pt in room, pt was with nursing staff. DCP spoke with Kaelyn from [facility], state they are ready to accept pt today, requesting clinicals to be sent and pt to be transported via BLS transport. DCP faxed available clinicals to [facility] fax # [phone]. DCP called [facility] and requested next available BLS transport due to pt being bed confined. Arranged transport to tow picker pt at 1145. Plan: Anticipating dc back to [facility] on 03/17 via [facility]. CM team will follow closely for coordination of discharge plans. Yolanda Irving [facility] Discharge Planning/Care Management CM Discharge Assessment Start: 03/16/25 10:50 Freq: Status: Active Protocol: Document 03/17/25 10:34 MW (Rec: 03/17/25 10:39 MW [id number]) Discharge Planning Assessment Assigned Discharge MIKY Guerrero Stripper [place] DPOA/Assigned Lis Guzmán, Vivian Designee Name Contact Information [phone] Advance Directives? No History Provided By Patient,Family Member,Medical Record Prior Living Assisted Living Arrangements Household Members other Facility Name [facility]isted Living Admitted From: Independent with ADL Yes 's Is patient alert and Yes oriented? Needs Assistance Grooming,Meal Prep,Managing Medications,Home Chores / With Shopping Caregiver for No Another Barriers to No Discharge Discharge Plan Assisted Living Facility Whiteboard Updated Yes in Patient Room with name and ext. # of [employer]work Teacher Comment [phone] Review Status In Process Please Provide Date 03/17/25 Initial DC Assessment Was Performed Next Review Type Continued Stay Review
--- NOTE | 2025-03-17 12:14 | P.DS_ITS ---
History of Present Illness History of Present Illness Date Patient Seen: 03/17/25 Time Patient Seen: 08:25 Chief complaint: blurry vision, left leg pain Narrative: 64-year-old male with a previous history of stroke with left-sided contractures at a nursing facility noted that he had blurred vision this morning. Patient presents to the emergency room for evaluation. By the emergency room negative for stroke on CT angiography and MRI patient placed in observation for overnight cardiac monitoring and echocardiogram Discharge Providers Provider Date of admission: 03/16/25 10:44 Discharge Date: 03/17/25 Discharge provider: Alexis Aguayo MD Summary Hospital Course Discharge Diagnosis: 1. Blurred vision with a history of previous stroke, resolved with negative workup for acute stroke 2. Cerebrovascular disease with history of prior stroke and residual left hemiparesis 3. Depression 4. GERD 5. Seizure disorder Hospital Course: The patient was admitted and monitored with serial neurologic exams. He remained neurologically stable with chronic persistent left hemiparesis with contractures during his hospitalization. He had a negative imaging workup, showing no evidence of new stroke or neurologic process. He was feeling back to baseline and arrangements were made for discharge back to longterm facility. No other issues arose. Status at Discharge Cognitive/behavioral status at discharge: oriented Functional status at discharge: bed bound Overall status at discharge: patient is progressing back to baseline Time Spent with Patient Time spent: Greater than 30 minutes Exam Vital Signs (past 8 hours): - 03/17/25 08:04 Temperature 98.0 F Pulse Rate 70 Respiratory Rate 17 Blood Pressure 119/73 Pulse Oximetry 94 Oxygen Flow Rate 0 Oxygen Delivery Method Room Air Oxygen Flow Rate 0 Narrative Exam Narrative: Anxious male but no acute physical distress chronically ill and contracted HEENT unremarkable Heart rate and rhythm no murmurs Lungs clear Abdomen nontender bowel sounds present Extremities no cyanosis Objective ECG Impression: Normal sinus rhythm at 86bpm Nonspecific T wave abnormality Imaging *: Radiologist's impression: 1. Head CT 03/16/2025: 1. No acute intracranial pathology. 2. Prior right temporal parietal craniotomy with extensive encephalomalacia in right cerebral hemisphere and ex vacuo dilatation of right lateral ventricle. 2. Head/neck CTA 03/16/2025: 1. No significant intracranial arterial abnormality is seen. 2. No significant abnormality is seen within the arteries of the neck. 3. Brain MRI 03/16/2025: No findings of acute or subacute infarction can be seen. Remote MCA territory infarction seen, with associated prior hemorrhage and ex vacuo dilatation of the right lateral ventricle. Overlying craniotomy change can be seen. 4. Echocardiogram 03/16/2025: Agitated saline study demonstrates a [id number] shunt. Normal biventricular size and systolic function. LVEF is 55 to 60%. Normal atrial sizes. No significant valvular pathology is noted. Other findings as below. Labs 03/16/25 09:16 03/16/25 09:16 Labs: Laboratory Results - last 24 hr 03/16/25 09:16 Magnesium 1.9 PFSH Social History household members: other Smoking Status: Never smoker alcohol intake: former Discharge Plan Discharge Plan Patient Disposition: SNF Transfer to: [facility] Living Transportation: Ambulance I certify the postop hospital longterm care is medically necessary on a continuing basis for any conditions for which he/ she received care during this hospitalization.: Yes The receiving facility has agreed to accept transfer and provide medical treatment.: Yes Discharge orders & Medications Prescriptions: Continued methocarbamol 500 mg tablet 500 mg PO Q6H PRN (Reason: Pain (Scale Score 4-6)) levetiracetam 500 mg tablet 500 mg PO BID olanzapine 10 mg tablet 10 mg PO ONCE PM baclofen 20 mg tablet 20 mg PO BID trazodone 100 mg tablet 150 mg PO BEDTIME pantoprazole 40 mg tablet,delayed release (DR/EC) 40 mg PO DAILY gabapentin 300 mg capsule 600 mg PO BEDTIME gabapentin 100 mg capsule 100 mg PO BEDTIME gabapentin 100 mg capsule 400 mg PO QAM PRN (Reason: CONTRACTURE) diclofenac sodium 1 % Gel 2 g TOPICAL BEDTIME Rx Instructions: LLE acetaminophen 500 mg capsule 1,000 mg PO DAILY Acidophilus Capsule 100 mg PO DAILY calcium carbonate [Calcium 500] 500 mg calcium (1,250 mg) tablet,chewable 500 mg PO DAILY cetirizine 10 mg tablet 10 mg PO DAILY PRN (Reason: allergy symptoms) DLCYCLOMINE 10 mg capsule See Rx Instructions .ROUTE .COMPLEX Rx Instructions: 10MG BY MOUTH EVERY 6HR PRN FOR DIARRHEA/ABD PAIN; docusate sodium 100 mg capsule 100 mg PO DAILY PRN (Reason: constipation) guaifenesin [Expectorant] 200 mg tablet 400 mg PO Q4H PRN (Reason: excessive salivation) ibuprofen 800 mg tablet 800 mg PO .Q 12HR PRN (Reason: pain) sertraline 25 mg tablet 25 mg PO DAILY Follow up/Referrals: Miscellaneous,Doctor, [Non-Staff, Medical] Diet/Activity/Treatments Diet: Diet as Tolerated Liquid consistency: Normal/Thin Food texture: Regular Visit Report/Discharge Packet Stand Alone Forms: Patient Portal/API, Stroke Signs & Symptoms Discharge Data Attending Provider: Bulmaro Davis Admit Date/Time: 03/16/25 10:44 Quality VTE Deep Vein Thrombosis/Pulmonary Embolism Present on Admission: No MIPS - Admit I confirm the patient?s Advance Care Plan is present, Code status is documented, Surrogate decision maker is in patient?s record [If Yes, STOP here]: Yes MIPS - Meds 'Current medications' to include all prescriptions, [id number] products, herbals, cannabis/cannabidiol products, and vitamin/mineral/dietary (nutritional) supplements. I have utilized all available resources to obtain, update, or review the patient?s current medications. [If Yes, STOP here]: Yes MIPS - DC The patient has a history of heart transplant or Left Ventricular Assist Device (LVAD). If yes, STOP here.: No The patient has current or prior documentation of left ventricular ejection fraction (LVEF) less than or equal to 40%, or moderate or severely depressed left ventricular systolic function.: No A. The patient was prescribed or already taking an Angiotensin-Converting Enzyme (NELDA) Inhibitor, or Angiotensin Receptor Meghana (ARB).: No B. The patient was prescribed or already taking a beta-meghana. [If Yes to Both A & B, STOP here]: No Patient not prescribed/taking NELDA or ARB, no reason given.: No Patient not prescribed/taking beta-meghana, no reason given.: No PROFEE Charge Codes Discharge inpatient/observation: 75036
== END 2025-03-17 12:08 ==
LOC: ED 10:26 → AC 10:45
PROVIDERS: Admitting Provider Internal Medicine; Emergency Provider Emergency Medicine; Referring Provider Emergency Medicine; Visit Provider Internal Medicine
DX: H53.8 Other visual disturbances (principal); R47.01 Aphasia; R29.711 NIHSS score 11; I69.354 Hemiplegia and hemiparesis following cerebral infarction affecting left non-dominant side; F32.A Depression, unspecified; K21.9 Gastro-esophageal reflux disease without esophagitis; G40.909 Epilepsy, unspecified, not intractable, without status epilepticus
CPT/HCPCS: 70450; 70496; 70498; 70551; 80053; 81001; 82550; 82962; 83735; 84484; 85025; 85610; 85730; 87077; 87086; 87186; 93005; 93306; 96360; 96361; 96372; 99284; G0378; J1644; Q9967

== ENCOUNTER 2025-05-11 04:09 | Emergency (ER) | payer OTHER, SELFPAY ==
[2025-03-16 12:03] VITALS: BMI 26.9
[2025-05-11 04:13] VITALS: PULSE 82; O2SAT 94
[2025-05-11 04:14] VITALS: BP 127/86; PULSE 82; RESP 16; TEMP 36.7; O2SAT 93; BMI 25.0
--- NOTE | 2025-05-11 04:26 | ED.EYEPROB ---
HPI - Eye Problem General Chief complaint: Eye Problems Stated complaint: L eye pain Time Seen by Provider: 05/11/25 04:26 Source: patient and EMS Mode of arrival: EMS History of Present Illness HPI Narrative: Patient is 64-year-old male history of stroke left-sided contractures was in a nursing facility presents today with left eye pain and itchiness arrived by EMS. He feels like eyelashes stuck behind his eye.? It has been quite tearful all night. ?Just reports that it is really irritated.He denies any blurry vision double vision loss of vision I floaters or curtain closing. Related Data Home Medications ?Medication ?Instructions ?Recorded ?Confirmed baclofen 20 mg tablet 20 mg PO BID 05/01/24 03/16/25 diclofenac sodium 1 % topical gel 2 g topical BEDTIME 05/01/24 03/16/25 gabapentin 100 mg capsule 100 mg PO BEDTIME 05/01/24 03/16/25 gabapentin 100 mg capsule 400 mg PO QAM PRN CONTRACTURE 05/01/24 03/16/25 gabapentin 300 mg capsule 600 mg PO BEDTIME 05/01/24 03/16/25 levetiracetam 500 mg tablet 500 mg PO BID 05/01/24 03/16/25 methocarbamol 500 mg tablet 500 mg PO Q6H PRN Pain (Scale 05/01/24 03/16/25 Score 4-6) olanzapine 10 mg tablet 10 mg PO ONCE PM 05/01/24 03/16/25 pantoprazole 40 mg tablet,delayed 40 mg PO DAILY 05/01/24 03/16/25 release trazodone 100 mg tablet 150 mg PO BEDTIME 05/01/24 03/16/25 DLCYCLOMINE See Rx Instructions .Route .COMPLEX 03/16/25 03/16/25 Lactobacillus acidophilus 100 mg PO DAILY 03/16/25 03/16/25 (Acidophilus capsule) acetaminophen 500 mg capsule 1,000 mg PO DAILY 03/16/25 03/16/25 calcium carbonate (Calcium 500) 500 mg PO DAILY 03/16/25 03/16/25 cetirizine 10 mg tablet 10 mg PO DAILY PRN allergy symptoms 03/16/25 03/16/25 docusate sodium 100 mg capsule 100 mg PO DAILY PRN constipation 03/16/25 03/16/25 guaifenesin 200 mg tablet 400 mg PO Q4H PRN excessive 03/16/25 03/16/25 (Expectorant) salivation ibuprofen 800 mg tablet 800 mg PO .Q 12HR PRN pain 03/16/25 03/16/25 sertraline 25 mg tablet 25 mg PO DAILY 03/16/25 03/16/25 Previous Rx's ?Medication ?Instructions ?Recorded erythromycin 5 mg/gram (0.5 %) eye 0.5 inch EYE-RIGHT Q4HRWA 7 days 05/11/25 ointment #3.5 grams Allergies Allergy/AdvReac Type Severity Reaction Status Date / Time tramadol AdvReac Intermediate Vomiting Verified 05/11/25 04:14 Patient History Social History household members: other Smoking Status: Unknown if ever smoked alcohol intake: former Smoking Status: Unknown if ever smoked alcohol intake frequency: 0-2 drinks per day Exam Initial Vital Signs Initial Vital Signs: Vital Signs Pulse Rate 82 05/11/25 04:13 Pulse Oximetry 94 05/11/25 04:13 GENERAL: Well-appearing, well-nourished and in no acute distress. EYE: EOMI, PERTL Right eye was treated with proparacaine, stained with fluorescein there is dye uptake no gross foreign body pupils equal round and reactive no evidence of globe rupture mild conjunctiva Left eye was treated with proparacaine, stained with fluorescein.? No dye uptake.? No foreign body. CARDIOVASCULAR: peripheral pulses in tact, cap refill <2 sec RESPIRATORY: No respiratory distress,? speaks in full sentences without difficulty EXTREMITIES: Normal range of motion, no clubbing or edema.? Neurovascularly intact NEUROLOGICAL: Cranial nerves II through XII grossly intact.? Normal gait and speech. SKIN: Warm, dry, no petechiae, no rashes or lesions. Course Orders Ordered: Discontinued Medications Erythromycin (Erythromycin Ophth 1 Gm Oint) 1 applic EYE-RIGHT NOW ONE Stop: 05/11/25 05:42 Last Admin: 05/11/25 05:43 Dose: 1 applic Documented By: CHAMP Fluorescein Sodium (Fluorescein 1 Mg Strip) 1 mg EYE-BOTH NOW ONE Stop: 05/11/25 04:35 Last Admin: 05/11/25 05:42 Dose: 1 mg Documented By: CHAMP Proparacaine HCl (Proparacaine 0.5% Ophth Yazmin) 1 drops EYE-BOTH NOW ONE Stop: 05/11/25 04:35 Last Admin: 05/11/25 05:43 Dose: 1 drop Documented By: CHAMP Vital Signs Vital signs: Vital Signs - 8 hr 05/11/25 04:13 05/11/25 04:14 05/11/25 04:30 Temperature 98.0 F Pulse Rate 82 82 75 Respiratory Rate 16 Blood Pressure 127/86 Pulse Oximetry 94 93 90 L Oxygen Delivery Method Room Air 05/11/25 04:30 05/11/25 05:00 05/11/25 05:00 Temperature Pulse Rate 74 Respiratory Rate Blood Pressure 118/82 127/82 Pulse Oximetry 91 Oxygen Delivery Method 05/11/25 05:30 05/11/25 05:30 05/11/25 06:00 Temperature Pulse Rate 76 77 Respiratory Rate Blood Pressure 123/81 Pulse Oximetry 91 91 Oxygen Delivery Method 05/11/25 06:00 Temperature Pulse Rate Respiratory Rate Blood Pressure 127/78 Pulse Oximetry Oxygen Delivery Method MDM - Eye Problem MDM Narrative Medical decision making narrative: Patient is 64-year-old male presenting today with right eye irritation. He is found to have a corneal abrasion right. No foreign body also probable conjunctivitis. No evidence of significant trauma or globe rupture. Discharge Plan Departure Patient Disposition: Home Clinical Impression: Corneal abrasion Instructions: Corneal Abrasion Activity Restrictions/Additional Instructions: *You have been diagnosed with corneal abrasion *What to do: *Continue to take medications as directed Erythromycin right every 4 hours while awake for 7 days--> [facility] *Follow up with your primary care provider in 2-3 days or call [phone] *Return to ER if you should have increasing redness drainage irritation or any new, worsening or concerning symptoms Prescriptions: New erythromycin 5 mg/gram (0.5 %) ointment 0.5 inch EYE-RIGHT Q4HRWA 7 Days Qty: 3.5 0RF No Action methocarbamol 500 mg tablet 500 mg PO Q6H PRN (Reason: Pain (Scale Score 4-6)) levetiracetam 500 mg tablet 500 mg PO BID olanzapine 10 mg tablet 10 mg PO ONCE PM baclofen 20 mg tablet 20 mg PO BID trazodone 100 mg tablet 150 mg PO BEDTIME pantoprazole 40 mg tablet,delayed release (DR/EC) 40 mg PO DAILY gabapentin 300 mg capsule 600 mg PO BEDTIME gabapentin 100 mg capsule 100 mg PO BEDTIME gabapentin 100 mg capsule 400 mg PO QAM PRN (Reason: CONTRACTURE) diclofenac sodium 1 % Gel 2 g TOPICAL BEDTIME Rx Instructions: LLE acetaminophen 500 mg capsule 1,000 mg PO DAILY Acidophilus Capsule 100 mg PO DAILY calcium carbonate [Calcium 500] 500 mg calcium (1,250 mg) tablet,chewable 500 mg PO DAILY cetirizine 10 mg tablet 10 mg PO DAILY PRN (Reason: allergy symptoms) DLCYCLOMINE 10 mg capsule See Rx Instructions .ROUTE .COMPLEX Rx Instructions: 10MG BY MOUTH EVERY 6HR PRN FOR DIARRHEA/ABD PAIN; docusate sodium 100 mg capsule 100 mg PO DAILY PRN (Reason: constipation) guaifenesin [Expectorant] 200 mg tablet 400 mg PO Q4H PRN (Reason: excessive salivation) ibuprofen 800 mg tablet 800 mg PO .Q 12HR PRN (Reason: pain) sertraline 25 mg tablet 25 mg PO DAILY Stand Alone Forms: Patient Portal/API
[2025-05-11 04:30] VITALS: BP 118/82; PULSE 75; O2SAT 90
[2025-05-11 05:00] VITALS: BP 127/82; PULSE 74; O2SAT 91
[2025-05-11 05:30] VITALS: BP 123/81; PULSE 76; O2SAT 91
[2025-05-11] MEDS: FLUORESCEIN 1 MG STRIP EYE-BOTH (05:42)
--- NOTE | 2025-05-11 05:42 | PC.NURSE ---
Dr. Hale with headlamp seeing patients R eye
[2025-05-11] MEDS: ERYTHROMYCIN OPHTH 1 GM OINT 1 APPLIC EYE-RIGHT (05:43)
[2025-05-11] MEDS: PROPARACAINE 0.5% OPHTH SOL 1 DROPS EYE-BOTH (05:43)
[2025-05-11 06:00] VITALS: BP 127/78; PULSE 77; O2SAT 91
--- NOTE | 2025-05-11 06:18 | PC.NURSE ---
Velma called and updated on patient status. Staff at [facility] report they will be able to come and pick him up after shift change with his personal wheelchair. Pt updated and states he would rather stay here in the ED because [facility] is too cold for him. Pt informed there is no indication for him to stay here longer
== END 2025-05-11 06:51 | disposition home or self-care (01) ==
PROVIDERS: Emergency Provider Emergency Medicine
DX: S05.02XA Injury of conjunctiva and corneal abrasion without foreign body, left eye, initial encounter (principal)
CPT/HCPCS: 99282